=== PATIENT | male | born 1935 | race Caucasian/White ===

== ENCOUNTER 2016-05-17 18:11 | Inpatient (IN) | payer MEDICARE, OTHER ==
[~2016-05-17] VITALS: Ht 167.6 cm; Wt 67.9 kg
[2016-05-17 20:40] VITALS: BP 143/65; PULSE 82; RESP 18
[2016-05-17 22:01] VITALS: Ht 167.6 cm; Wt 67.9 kg
[2016-05-17] MEDS ORDERED: ACETAMINOPHEN 325 MG TAB PO PRN (23:30)
[2016-05-17] MEDS ORDERED: BISACODYL 10 MG SUPP PR PRN (23:30)
[2016-05-17] MEDS ORDERED: GLUCAGON 1 MG INJ IM PRN (23:30)
[2016-05-17] MEDS ORDERED: LACTULOSE 30ML CUP PO PRN (23:30)
[2016-05-17] MEDS ORDERED: ONDANSETRON 4 MG INJ IV PRN (23:30)
[2016-05-17] MEDS ORDERED: GLUCOSE GEL 15 GRAM TUBE PO PRN ×2 (23:30)
[2016-05-17] MEDS ORDERED: IPRATROPIUM (NEB) 0.5 MG/2.5 ML AMP INH PRN (23:30)
[2016-05-17] MEDS ORDERED: MAGNESIUM HYDROXIDE 30ML CUP PO PRN (23:30)
[2016-05-17] MEDS ORDERED: GLUCOSE GEL 15 GRAM TUBE BUCCAL PRN (23:30)
[2016-05-17] MEDS ORDERED: DEXTROSE 50% 50 ML SYRINGE IV PRN ×2 (23:30)
[2016-05-17] MEDS: TAMSULOSIN (SR) 0.4 MG CAP PO SCH (23:37)
[2016-05-17] MEDS: ATORVASTATIN 80 MG TAB PO SCH (23:37)
[2016-05-17] MEDS: INSULIN GLARGINE [LANtus] 3 ML PEN SC SCH (23:51)
[2016-05-18] MEDS: ACCUCHECK AT 2AM (Patients on SS coverage) XX SCH (02:00)
[2016-05-18 02:02] LABS: ADD UMIC YES; URINE BILIRUBIN (Dip) NEGATIVE (NEGATIVE); URINE BLOOD (Dip) TRACE (NEGATIVE); URINE COLOR LT. YELLOW (YELLOW); URINE GLUCOSE (Dip) NEGATIVE (NEGATIVE); URINE KETONES (Dip) NEGATIVE (NEGATIVE); URINE LEUKOCYTE ESTERASE (Dip) NEGATIVE (NEGATIVE); URINE NITRITE (Dip) NEGATIVE (NEGATIVE); URINE TOTAL PROTEIN (Dip) 2+ (NEGATIVE); URINE UROBILINOGEN (Dip) 0.2 E.U./dL (0.1-1.0)
[2016-05-18 02:29] LABS: SQUAMOUS EPITHELIAL CELL,UR FEW
[2016-05-18 06:47] LABS: BASOPHILS % 0.2 % (0.0-2.0); EOSINOPHILS # 0.3 10^3/ul (0.0-0.5); EOSINOPHILS % 3.6 % (0.0-7.0); HEMATOCRIT 31.3 % (42.0-52.0); HEMOGLOBIN 10.4 g/dl (14.0-18.0); LYMPHOCYTES % 11.9 % (15.0-51.0); MEAN CORPUSCULAR HEMOGLOBIN 30.3 pg (29.0-33.0); MEAN CORPUSCULAR HGB CONC 33.1 g/dl (32.0-37.0); MEAN CORPUSCULAR VOLUME 91.5 fl (82.0-101.0); MEAN PLATELET VOLUME 8.1 fl (7.4-10.4); MONOCYTE # 0.6 10^3/ul (0.3-0.9); MONOCYTES % 6.4 % (0.0-11.0); NEUTROPHIL # 6.8 10^3/ul (1.6-7.5); NEUTROPHILS % 77.9 % (39.0-77.0); PLATELET COUNT 308 10^3/UL (140-440); RED BLOOD COUNT 3.42 10^6/ul (4.70-6.10); UNCORRECTED WBC 8.7 10^3/ul (4.8-10.8); WHITE BLOOD COUNT 8.7 10^3/ul (4.8-10.8)
[2016-05-18 06:49] LABS: ALBUMIN 3.1 g/dl (3.3-4.9)
[2016-05-18 06:52] LABS: ALBUMIN/GLOBULIN RATIO 0.86; BILIRUBIN,INDIRECT 0.1 mg/dl (0-1.1); BILIRUBIN,TOTAL 0.1 mg/dl (0.2-1.3); CREATININE 1.37 mg/dl (0.61-1.24); TOTAL PROTEIN 6.7 g/dl (6.1-8.1)
[2016-05-18 06:53] LABS: CALCIUM 8.9 mg/dl (8.4-10.2)
[2016-05-18] MEDS: PANTOPRAZOLE (EC) 40 MG TAB PO SCH (06:55)
[2016-05-18 07:01] LABS: CONDITION 1
[2016-05-18] MEDS: Insulin NOVOLOG SS MILD Algorithm (SS with meals and bedtime) SC SCH ×4 (07:05→20:55)
[2016-05-18 08:14] VITALS: BP 134/60; PULSE 82; RESP 20
[2016-05-18] MEDS: CLOPIDOGREL 75 MG TAB PO SCH (09:11)
[2016-05-18] MEDS: DUTASTERIDE 0.5 MG CAP PO SCH (09:11)
[2016-05-18] MEDS: DOCUSATE SODIUM 100 MG CAP PO SCH ×2 (09:11→20:51)
[2016-05-18] MEDS: AMLODIPINE 10 MG TAB PO SCH (09:11)
[2016-05-18] MEDS: REPAGLINIDE 2 MG TAB PO SCH ×3 (09:11→17:34)
[2016-05-18] MEDS: ASPIRIN 81 MG TAB PO SCH (09:11)
--- NOTE | 2016-05-18 12:40 | CONS ---
DATE OF ADMISSION: 05/17/2016 DATE OF CONSULTATION: 05/18/2016 CHIEF COMPLAINT: Acute stroke. HISTORY OF PRESENT ILLNESS: This is a 80-year-old male with a past medical history of hypertension, history of chronic kidney disease stage IIIB, with a baseline creatinine around 1.5 to 1.7 mg/dL, h istory of diabetes, history of coronary artery disease, history of coronary artery bypass graft who presented to [facility] for evaluation of a sudden right-sided blindness. The patient i n the emergency room and had an initial CT scan of the brain which showed no acute evidence of cereb rovascular accident. The patient was diagnosed with amaurosis fugax and was admitted to [facility] for evaluation and possible carotid endarterectomy. The patient was seen by vascular escobar rgeon, Dr. Vu. An MRI of the brain was done which showed high-grade stenosis of the right pro ximal intracranial artery. 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 The patient was seen by neurologist, Dr. Kimbrough. The horacio ent was medically managed with aspirin, Plavix, and statin therapy. The patient was clinically stab ilized; however, he did suffer a significant premorbid decline, but as a result was transferred to [facility] acute rehab for continued care. Upon my evaluation of the patient at this time, he is currently stable. He continues to have left h and weakness, but denies any active pain, any fevers, chills, nausea, vomiting, shortness of breath. PAST MEDICAL HISTORY: As stated above, history of hypertension, history of coronary artery disease, history of coronary artery bypass graft, history of chronic kidney disease, history of dyslipidemia , history of BPH. PAST SURGICAL HISTORY: Status post right-sided carotid endarterectomy. FAMILY HISTORY: No family history of kidney disease or heart disease. SOCIAL HISTORY: Does not drink, smoke, or do drugs. MEDICATIONS: The patient's medications have been reviewed. REVIEW OF SYSTEMS: A 14-point review of systems was conducted. Pertinent positives as noted in HPI , otherwise negative. PHYSICAL EXAMINATION: VITAL SIGNS: Blood pressure 134/60, respirations 20, pulse 82, temperature 98.4. HEENT: Head is normocephalic. NECK: Supple. HEART: Regular rate. LUNGS: Show diminished breath sounds at the base. ABDOMEN: Soft, nontender to palpation, no rebound or guarding. EXTREMITIES: Negative for clubbing, cyanosis, no edema in the lower extremities. DERMATOLOGIC: No rashes. MUSCULOSKELETAL: No joint effusions. NEUROLOGIC: The patient has noted left upper extremity and left hand weakness. LABORATORY DATA: Shows white count 8.7, hemoglobin 10.4, hematocrit 31.3, platelet count 308. [place] um 144, potassium 4.0, chloride 106, BUN 29, creatinine 1.37. Urinalysis is reviewed and bland. ASSESSMENT AND PLAN: This is a 80-year-old male who presents with: 1. 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 The patient is currently stable. The plan is to continue current medical management wit h aspirin, Plavix, statin therapy. Continue current blood pressure regimen with the goal systolic p ressures less than 140. Continue physical therapy and PT. 2. Status post right carotid endarterectomy. The patient is currently stable. Continue current me dical management. Continue antiplatelet therapy stated above. 3. Diabetes. Continue Accu-Cheks and insulin sliding scale. 4. Hypertension. Continue current blood pressure regimen. 5. Chronic kidney disease stage III. The patient's baseline renal function around a creatinine of 1.5 mg/dL. Renal function is near baseline. Will continue supportive care, renally dose all medica tions, avoid nephrotoxins. 6. Diabetes. Continue Accu-Cheks, insulin sliding scale. 7. Benign prostatic hypertrophy. Continue Avodart and Flomax. 8. Gastrointestinal and deep venous thrombosis prophylaxis. Continue proton pump inhibitor and seq uential leg squeezers 9. History of coronary artery disease status post coronary artery bypass graft. Please note I spent up to 30 minutes of face to face time with the patient, discussing advance direc tives, code status. The patient is full code. Dictated By: RAYMOND BORREGO/DAMARI Conf#: [id number] DID#: [id number]
--- NOTE | 2016-05-18 12:50 | CONS ---
DATE OF ADMISSION: 05/17/2016 DATE OF CONSULTATION: 05/18/2016 REHABILITATION POST ADMISSION PHYSICIAN EVALUATION REHABILITATION IMPAIRMENT CATEGORY: Right MCA infarct with left-sided weakness. ACTIVE COMORBIDITIES: 1. Status post carotid endarterectomy. 2. Diabetes mellitus. 3. Hypertension. 4. Coronary artery disease with history of coronary artery bypass graft. 5. Chronic obstructive pulmonary disease. 6. Chronic kidney disease. 7. Dysphagia. 8. Impairments in self-care, mobility HISTORY OF PRESENT ILLNESS: The patient is a very pleasant 80-year-old right-handed gentleman with a history of coronary artery disease, hypertension and diabetes mellitus who underwent a right carot id endarterectomy for right ICA stenosis. Postoperatively, patient was noted to have significant le ft-sided weakness, most notable in the upper extremity. A head CT of the brain did demonstrate scat tered small strokes in the right MCA distribution and was negative for bleed. The patient also note d to have significant dysphagia. The patient has now been cleared to transfer to the rehabilitation unit for comprehensive interdisciplinary rehab care. FUNCTIONAL HISTORY: Prior to recent events, he was independent in self-care tasks and mobility. Cu rrently, the patient requires minimal to moderate to maximal assist for self-care activities and mod erate assist for mobility tasks. I have reviewed the preadmission screen and the patient's current functional status is consistent wi th the preadmission screen. SOCIAL HISTORY: The patient lives at home with family and hopes to return home upon discharge. PAST MEDICAL HISTORY: 1. Hypertension. 2. Coronary artery disease. 3. Diabetes mellitus. 4. Peripheral vascular disease. CURRENT MEDICATIONS: 1. Norvasc 10 mg p.o. daily. 2. Aspirin 81 mg p.o. daily. 3. Lipitor 80 mg p.o. at bedtime. 4. Plavix 75 mg p.o. daily. 5. Avodart 0.5 mg p.o. daily. 6. Insulin sliding scale. 7. Lantus 13 units subcu at bedtime. 8. Protonix 40 mg p.o. daily. 9. Catapres p.r.n. 10. Prandin 2 mg p.o. a.c. meals. 11. Flomax 0.4 mg p.o. daily. 12. [place] p.r.n. ALLERGIES: THE PATIENT WITH NO KNOWN DRUG ALLERGIES. PHYSICAL EXAMINATION: VITAL SIGNS: The patient is currently afebrile with stable vital signs. HEENT: The extraocular motions are intact. Oropharynx clear. NECK: With bandage in place, dry dressing. Surgical incision site clean, dry and intact. LUNGS: Clear anteriorly. CARDIAC: S1, S2. ABDOMEN: Soft, nontender, positive bowel sounds. NEUROLOGIC: He is awake, alert and oriented x3. He can follow simple 1-step commands. He demonstr ates good strength in the right upper and lower extremity. He has 3 to 3- strength in the left uppe r extremity. He has good antigravity strength in the left lower extremity. PLAN: The patient has been admitted for comprehensive interdisciplinary acute rehab and is anticipa terri to tolerate 3 hours of daily therapy in divided doses for at least 5/7 days a week. Treatment p tavia will include: 1. Physical therapy to focus on bed mobility, transfers, and household ambulation with the goal of having the patient reach standby assist level. 2. Occupational therapy to focus on hygiene, grooming, dressing, bathing, and toileting activities with the goal of having the patient reach standby assist level. 3. Speech therapy for full cognitive assessment in addition to dysphagia management with the goal o f having the patient return to baseline cognition and meet nutritional needs by mouth. 4. Rehabilitation nursing for carryover of therapeutic interventions, with the goal of continent of bowel and bladder, and the goal of skin integrity healed in addition to patient and family educatio n with regard to the aforementioned issues. REHABILITATION BARRIER: Dysphagia. INTERVENTION FOR BARRIER: Speech therapy. ESTIMATED LENGTH OF STAY: 14 days. DISPOSITION GOAL: Home. I acknowledge that I have performed a full physical examination on this patient within 24 hours of a dmission to the rehabilitation unit. I believe the patient is a good candidate for comprehensive in terdisciplinary rehab care and is anticipated to make reasonable goals in a reasonable period of jesse e as outlined above. Dictated By: FAHAD PEREZ/DAMARI Conf#: [id number] DID#: [id number]
[2016-05-18 20:00] VITALS: BP 150/70; PULSE 84; RESP 18
[2016-05-18] MEDS: TAMSULOSIN (SR) 0.4 MG CAP PO SCH (20:51)
[2016-05-18] MEDS: SENNA TAB PO SCH (20:52)
[2016-05-18] MEDS: ATORVASTATIN 80 MG TAB PO SCH (20:52)
[2016-05-18] MEDS: INSULIN GLARGINE [LANtus] 3 ML PEN SC SCH (20:53)
[2016-05-18] MEDS: HYDROCODONE/APAP (5/325) TAB PO PRN (23:25)
[2016-05-19] MEDS: ACCUCHECK AT 2AM (Patients on SS coverage) XX SCH (02:00)
[2016-05-19] MEDS: PANTOPRAZOLE (EC) 40 MG TAB PO SCH (06:53)
[2016-05-19 07:18] LABS: BASOPHILS % 0.3 % (0.0-2.0); EOSINOPHILS # 0.5 10^3/ul (0.0-0.5); EOSINOPHILS % 6.4 % (0.0-7.0); LYMPHOCYTES # 1.4 10^3/ul (0.8-2.9); LYMPHOCYTES % 18.4 % (15.0-51.0); MEAN CORPUSCULAR HEMOGLOBIN 30.1 pg (29.0-33.0); MEAN CORPUSCULAR HGB CONC 33.4 g/dl (32.0-37.0); MEAN CORPUSCULAR VOLUME 90.3 fl (82.0-101.0); MEAN PLATELET VOLUME 7.8 fl (7.4-10.4); MONOCYTE # 0.6 10^3/ul (0.3-0.9); MONOCYTES % 8.2 % (0.0-11.0); NEUTROPHIL # 4.9 10^3/ul (1.6-7.5); NEUTROPHILS % 66.7 % (39.0-77.0); PLATELET COUNT 305 10^3/UL (140-440); RED BLOOD COUNT 3.32 10^6/ul (4.70-6.10); RED CELL DISTRIBUTION WIDTH 13.3 % (11.5-14.5); UNCORRECTED WBC 7.4 10^3/ul (4.8-10.8); WHITE BLOOD COUNT 7.4 10^3/ul (4.8-10.8)
[2016-05-19 07:27] LABS: POTASSIUM 4.2 mmol/L (3.5-5.1)
[2016-05-19 07:28] LABS: CONDITION 1
[2016-05-19 07:29] LABS: CREATININE 1.42 mg/dl (0.61-1.24)
[2016-05-19 07:30] LABS: CALCIUM 8.6 mg/dl (8.4-10.2); MAGNESIUM 1.8 mg/dl (1.7-2.5); PHOSPHORUS 4.1 mg/dl (2.5-4.9)
[2016-05-19 08:00] VITALS: BP 162/67; PULSE 81; RESP 18
[2016-05-19] MEDS: REPAGLINIDE 2 MG TAB PO SCH ×3 (08:10→17:56)
[2016-05-19] MEDS: Insulin NOVOLOG SS MILD Algorithm (SS with meals and bedtime) SC SCH ×4 (08:17→21:36)
[2016-05-19] MEDS: ASPIRIN 81 MG TAB PO SCH (08:21)
[2016-05-19] MEDS: AMLODIPINE 10 MG TAB PO SCH (08:21)
[2016-05-19] MEDS: DOCUSATE SODIUM 100 MG CAP PO SCH ×2 (08:21→20:27)
[2016-05-19] MEDS: HYDROCODONE/APAP (5/325) TAB PO PRN (08:22)
[2016-05-19] MEDS: CLOPIDOGREL 75 MG TAB PO SCH (08:22)
[2016-05-19] MEDS: DUTASTERIDE 0.5 MG CAP PO SCH (08:22)
[2016-05-19 10:00] VITALS: BP 145/65; PULSE 78
--- NOTE | 2016-05-19 10:32 | PN ---
DATE: 05/19/2016 SUBJECTIVE: The patient is stable, no acute events overnight. No fevers, chills, nausea, vomiting, no shortness of breath. OBJECTIVE: VITAL SIGNS: Blood pressure is 162/67, respiration 18, pulse 81, temperature 98.3. HEENT: Head is normocephalic. HEART: Regular rate. LUNGS: Show diminished breath sounds at the base. ABDOMEN: Soft, nontender to palpation. No rebound or guarding. EXTREMITIES: Negative for clubbing, cyanosis. No edema. DERMATOLOGIC: No rashes. MUSCULOSKELETAL: No joint effusions. NEUROLOGIC: No change in exam. DERMATOLOGIC: No rashes. LABORATORY DATA: Showed sodium 141, potassium 4.2, chloride 106, BUN 28, creatinine 1.42. White co unt 7.4, hemoglobin 10.0, hematocrit 30.0, platelet count is 142. ASSESSMENT AND PLAN: 1. 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 The patient is currently stable. Continue medical management. Continue aspirin, Plavix , statin therapy. Continue current blood pressure regimen. We will adjust medications to maintain systolic pressures less than 140. 2. Status post right carotid endarterectomy. The patient is currently stable. Continue medical ma nagement. 3. Diabetes. Continue current insulin regimen. 4. Hypertension. Blood pressure remains elevated, will add a secondary agent, Coreg. Continue aml odipine. 5. Chronic kidney disease, stage III. Renal function stable, near or at baseline. Continue suppor tive care, renally dose all meds, avoid nephrotoxins. 6. Diabetes. Continue Accu-Cheks and sliding scale. 7. Benign prostatic hypertrophy. Continue Avodart and Flomax. 8. History of coronary artery disease, status post coronary artery bypass graft. 9. Gastrointestinal and deep vein thrombosis prophylaxis. Continue PPI and sequential leg squeezer s. Dictated By: RAYMOND BORREGO/DAMARI Conf#: [id number] DID#: [id number]
--- NOTE | 2016-05-19 11:39 | CONS ---
Date/Time of Note Date/Time of Note DATE: 05/19/16 TIME: 11:38 Consult Date/Type/Reason Admit Date/Time May 17, 2016 at 20:38 Initial Consult Date Subjective Progressing with rehab Objective min assist Vital Signs Date Time Temp Pulse Resp B/P Pulse Ox O2 Delivery O2 Flow Rate FiO2 05/19/16 08:00 98.3 81 18 162/67 97 Room Air 05/18/16 01:30 2.0 Intake and Output 05/18/16 05/18/16 05/19/16 14:59 22:59 06:59 Intake Total 480 ml 240 ml 380 ml Output Total 600 ml 200 ml Balance -120 ml 40 ml 380 ml Results/Medications Result Diagram: 05/19/16 0654 05/19/16 0654 Results 24 hrs Laboratory Tests Test 05/18/16 12:02 05/18/16 17:05 05/18/16 20:49 05/19/16 02:15 Bedside Glucose 271 H 194 278 H 295 H Test 05/19/16 06:54 05/19/16 07:44 Anion Gap 15 Basophils # 0.0 Basophils % 0.3 Blood Urea Nitrogen 28 H Calcium Level 8.6 Carbon Dioxide Level 24 Chloride Level 106 Creatinine 1.42 H Eosinophils # 0.5 Eosinophils % 6.4 Glucose Level 195 Hematocrit 30.0 L Hemoglobin 10.0 L Lymphocytes # 1.4 Lymphocytes % 18.4 Magnesium Level 1.8 Mean Corpuscular Hemoglobin 30.1 Mean Corpuscular Hemoglobin Concent 33.4 Mean Corpuscular Volume 90.3 Mean Platelet Volume 7.8 Monocytes # 0.6 Monocytes % 8.2 Neutrophils # 4.9 Neutrophils % 66.7 Nucleated Red Blood Cells # 0.0 Nucleated Red Blood Cells % 0.0 Phosphorus Level 4.1 Platelet Count 305 Potassium Level 4.2 Red Blood Count 3.32 L Red Cell Distribution Width 13.3 Sodium Level 141 White Blood Count 7.4 Bedside Glucose 194 Medications Current Medications Amlodipine Besylate (Norvasc) 10 mg DAILY PO Last administered on 05/19/16at 08 :21; Admin Dose 10 MG; Start 05/18/16 at 09:00 Aspirin (Aspirin) 81 mg DAILY PO Last administered on 05/19/16at 08:21; Admin Dose 81 MG; Start 05/18/16 at 09:00 Atorvastatin Calcium (Lipitor) 80 mg DAILY@21 PO Last administered on at 20:52; Admin Dose 80 MG; Start 05/17/16 at 23:00 Clopidogrel Bisulfate (plaVIX) 75 mg DAILY PO Last administered on 05/19/16at 08:22; Admin Dose 75 MG; Start 05/18/16 at 09:00 Dutasteride (Avodart) 0.5 mg DAILY PO Last administered on 05/19/16at 08:22; Admin Dose 0.5 MG; Start 05/18/16 at 09:00 Insulin Glargine (Lantus) 13 unit HS SC Last administered on 05/18/16at 20:53; Admin Dose 13 UNIT; Start 05/17/16 at 23:00 Pantoprazole (Protonix Tab) 40 mg DAILY@06 PO Last administered on 05/19/16at 06:53; Admin Dose 40 MG; Start 05/18/16 at 06:00 Acetaminophen (Tylenol Tab) 650 mg Q4H PRN PO MILD PAIN OR FEVER; Start at 23:30 Clonidine (Catapres) 0.1 mg Q4H PRN PO ELEVATED BLOOD PRESSURE Last administered on 05/18/16at 23:22; Admin Dose 0.1 MG; Start 05/17/16 at 23:30 Ondansetron HCl (Zofran Inj) 4 mg Q6H PRN IV NAUSEA AND/OR VOMITING; Start at 23:30 Tamsulosin HCl (Flomax) 0.4 mg DAILY@21 PO Last administered on 05/18/16at 20: 51; Admin Dose 0.4 MG; Start 05/17/16 at 23:00 Diagnostic Test (Pha) (Accucheck) 1 ea 02 XX Last administered on 05/19/16at 02 :00; Admin Dose 1 EA; Start 05/18/16 at 02:00 Miscellaneous Information 1 ea NOTE XX ; Start 05/17/16 at 23:30 Glucose (Glutose) 15 gm Q15M PRN PO DECREASED GLUCOSE; Start 05/17/16 at 23:30 Glucose (Glutose) 22.5 gm Q15M PRN PO DECREASED GLUCOSE; Start 05/17/16 at 23: 30 Dextrose (D50w Syringe) 25 ml Q15M PRN IV DECREASED GLUCOSE; Start 05/17/16 at 23:30 Dextrose (D50w Syringe) 50 ml Q15M PRN IV DECREASED GLUCOSE; Start 05/17/16 at 23:30 Glucagon (Glucagen) 1 mg Q15M PRN IM DECREASED GLUCOSE; Start 05/17/16 at 23: 30 Glucose (Glutose) 15 gm Q15M PRN BUCCAL DECREASED GLUCOSE; Start 05/17/16 at 23:30 Acetaminophen/ Hydrocodone Bitart ([place] (5/325)) 1 tab Q6H PRN PO PAIN Last administered on 05/19/16at 08:22; Admin Dose 1 TAB; Start 05/17/16 at 23:30 Docusate Sodium (Colace) 100 mg BID PO Last administered on 05/19/16at 08:21; Admin Dose 100 MG; Start 05/18/16 at 09:00 Senna (Senokot) 1 tab HS PO Last administered on 05/18/16at 20:52; Admin Dose 1 TAB; Start 05/18/16 at 21:00 Bisacodyl (Dulcolax Supp) 10 mg DAILY PRN [place] CONSTIPATION; Start 05/17/16 at 23:30 Magnesium Hydroxide (Milk Of Mag) 30 ml BID PRN PO CONSTIPATION; Start at 23:30 Lactulose (Enulose) 20 gm DAILY PRN PO CONSTIPATION Last administered on at 23:37; Admin Dose 20 GM; Start 05/17/16 at 23:30 Carvedilol (Coreg) 3.125 mg BID PO ; Start 05/19/16 at 10:00 Assessment/Plan Additional Assessment/Plan Rehab- Right MCA infarct with left-sided weakness. Continue rehab program Status post carotid endarterectomy. Diabetes mellitus. Hypertension. Coronary artery disease with history of coronary artery bypass graft. Chronic obstructive pulmonary disease. Chronic kidney disease. Dysphagia. FAHAD MELTON MD May 19, 2016 11:39
[2016-05-19] MEDS: TAMSULOSIN (SR) 0.4 MG CAP PO SCH (20:27)
[2016-05-19] MEDS: ATORVASTATIN 80 MG TAB PO SCH (20:27)
[2016-05-19] MEDS: SENNA TAB PO SCH (20:27)
[2016-05-19 20:39] VITALS: BP 161/69; PULSE 87; RESP 19
[2016-05-19] MEDS: INSULIN GLARGINE [LANtus] 3 ML PEN SC SCH (21:35)
[2016-05-20] MEDS: ACCUCHECK AT 2AM (Patients on SS coverage) XX SCH (02:47)
[2016-05-20] MEDS: PANTOPRAZOLE (EC) 40 MG TAB PO SCH (06:40)
[2016-05-20 08:00] VITALS: BP 197/83; RESP 18
[2016-05-20] MEDS: ASPIRIN 81 MG TAB PO SCH (08:25)
[2016-05-20] MEDS: AMLODIPINE 10 MG TAB PO SCH (08:25)
[2016-05-20 08:26] VITALS: BP 155/65; RESP 18
[2016-05-20] MEDS: DOCUSATE SODIUM 100 MG CAP PO SCH ×2 (08:26→20:25)
[2016-05-20] MEDS: DUTASTERIDE 0.5 MG CAP PO SCH (08:26)
[2016-05-20] MEDS: HYDROCODONE/APAP (5/325) TAB PO PRN (08:26)
[2016-05-20] MEDS: CLOPIDOGREL 75 MG TAB PO SCH (08:26)
[2016-05-20] MEDS: REPAGLINIDE 2 MG TAB PO SCH ×3 (08:33→17:19)
[2016-05-20] MEDS: Insulin NOVOLOG SS MILD Algorithm (SS with meals and bedtime) SC SCH ×4 (08:33→20:33)
--- NOTE | 2016-05-20 11:56 | CONS ---
Date/Time of Note Date/Time of Note DATE: 05/20/16 TIME: 11:55 Consult Date/Type/Reason Admit Date/Time May 17, 2016 at 20:38 Subjective No New complaints Objective cga ambulation Vital Signs Date Time Temp Pulse Resp B/P Pulse Ox O2 Delivery O2 Flow Rate FiO2 05/20/16 08:26 18 155/65 98 Room Air 05/20/16 08:00 98.3 05/19/16 20:39 87 05/18/16 01:30 2.0 Intake and Output 05/19/16 05/19/16 05/20/16 14:59 22:59 06:59 Intake Total 360 ml Balance 360 ml Results/Medications Result Diagram: 05/19/16 0654 05/19/16 0654 Results 24 hrs Laboratory Tests Test 05/19/16 12:09 05/19/16 17:38 05/19/16 21:27 05/20/16 02:26 Bedside Glucose 270 H 325 H 330 H 144 Test 05/20/16 07:43 Bedside Glucose 153 Medications Current Medications Amlodipine Besylate (Norvasc) 10 mg DAILY PO Last administered on 05/20/16at 08 :25; Admin Dose 10 MG; Start 05/18/16 at 09:00 Aspirin (Aspirin) 81 mg DAILY PO Last administered on 05/20/16at 08:25; Admin Dose 81 MG; Start 05/18/16 at 09:00 Atorvastatin Calcium (Lipitor) 80 mg DAILY@21 PO Last administered on at 20:27; Admin Dose 80 MG; Start 05/17/16 at 23:00 Clopidogrel Bisulfate (plaVIX) 75 mg DAILY PO Last administered on 05/20/16at 08:26; Admin Dose 75 MG; Start 05/18/16 at 09:00 Dutasteride (Avodart) 0.5 mg DAILY PO Last administered on 05/20/16at 08:26; Admin Dose 0.5 MG; Start 05/18/16 at 09:00 Insulin Glargine (Lantus) 13 unit HS SC Last administered on 05/19/16at 21:35; Admin Dose 13 UNIT; Start 05/17/16 at 23:00 Pantoprazole (Protonix Tab) 40 mg DAILY@06 PO Last administered on 05/20/16at 06:40; Admin Dose 40 MG; Start 05/18/16 at 06:00 Acetaminophen (Tylenol Tab) 650 mg Q4H PRN PO MILD PAIN OR FEVER; Start at 23:30 Clonidine (Catapres) 0.1 mg Q4H PRN PO ELEVATED BLOOD PRESSURE Last administered on 05/19/16at 20:28; Admin Dose 0.1 MG; Start 05/17/16 at 23:30 Ondansetron HCl (Zofran Inj) 4 mg Q6H PRN IV NAUSEA AND/OR VOMITING; Start at 23:30 Tamsulosin HCl (Flomax) 0.4 mg DAILY@21 PO Last administered on 05/19/16at 20: 27; Admin Dose 0.4 MG; Start 05/17/16 at 23:00 Diagnostic Test (Pha) (Accucheck) 1 ea 02 XX Last administered on 05/20/16at 02 :47; Admin Dose 1 EA; Start 05/18/16 at 02:00 Miscellaneous Information 1 ea NOTE XX ; Start 05/17/16 at 23:30 Glucose (Glutose) 15 gm Q15M PRN PO DECREASED GLUCOSE; Start 05/17/16 at 23:30 Glucose (Glutose) 22.5 gm Q15M PRN PO DECREASED GLUCOSE; Start 05/17/16 at 23: 30 Dextrose (D50w Syringe) 25 ml Q15M PRN IV DECREASED GLUCOSE; Start 05/17/16 at 23:30 Dextrose (D50w Syringe) 50 ml Q15M PRN IV DECREASED GLUCOSE; Start 05/17/16 at 23:30 Glucagon (Glucagen) 1 mg Q15M PRN IM DECREASED GLUCOSE; Start 05/17/16 at 23: 30 Glucose (Glutose) 15 gm Q15M PRN BUCCAL DECREASED GLUCOSE; Start 05/17/16 at 23:30 Acetaminophen/ Hydrocodone Bitart ([place] (5/325)) 1 tab Q6H PRN PO PAIN Last administered on 05/20/16at 08:26; Admin Dose 1 TAB; Start 05/17/16 at 23:30 Docusate Sodium (Colace) 100 mg BID PO Last administered on 05/20/16at 08:26; Admin Dose 100 MG; Start 05/18/16 at 09:00 Senna (Senokot) 1 tab HS PO Last administered on 05/19/16at 20:27; Admin Dose 1 TAB; Start 05/18/16 at 21:00 Bisacodyl (Dulcolax Supp) 10 mg DAILY PRN [place] CONSTIPATION; Start 05/17/16 at 23:30 Magnesium Hydroxide (Milk Of Mag) 30 ml BID PRN PO CONSTIPATION; Start at 23:30 Lactulose (Enulose) 20 gm DAILY PRN PO CONSTIPATION Last administered on at 23:37; Admin Dose 20 GM; Start 05/17/16 at 23:30 Carvedilol (Coreg) 3.125 mg BID PO Last administered on 05/20/16at 08:26; Admin Dose 3.125 MG; Start 05/19/16 at 10:00 Assessment/Plan Additional Assessment/Plan Rehab- Right MCA infarct with left-sided weakness. Steady progress, continue treatment plan Status post carotid endarterectomy. Diabetes mellitus. Hypertension. Coronary artery disease with history of coronary artery bypass graft. Chronic obstructive pulmonary disease. Chronic kidney disease. Dysphagia. FAHAD MELTON MD May 20, 2016 11:56
--- NOTE | 2016-05-20 16:49 | PN ---
DATE: 05/20/2016 SUBJECTIVE: Patient is stable, no acute events overnight. No fevers, chills, nausea or vomiting. OBJECTIVE: VITAL SIGNS: Blood pressure 155/65, respiration 18, pulse 81, temperature 98.3. HEENT: Head is normocephalic. NECK: Supple. HEART: Regular rate. LUNGS: Show diminished breath sounds at the base. ABDOMEN: Soft, nontender to palpation. No rebound or guarding. EXTREMITIES: Negative for clubbing or cyanosis. No edema. DERMATOLOGIC: No rashes. MUSCULOSKELETAL: Have no joint effusion. NEUROLOGIC: No change in exam. MEDICATIONS: The patient's medications have been reviewed. LABORATORY DATA: Has been reviewed. No new labs. ASSESSMENT AND PLAN: 1. Acute right-sided cerebrovascular accident of the middle cerebral artery distribution, with left upper extremity weakness. The patient is currently stable. Continue medical management. Continue aspirin, Plavix and statin therapy. 2. Status post right carotid endarterectomy. The patient is currently stable. Continue medical ma nagement. 3. Diabetes. Continue the current insulin regimen. 4. Hypertension. Blood pressure is elevated. Will adjust medications, increase Coreg to 12.5 b.i. d. Continue amlodipine. 5. Chronic kidney disease stage III. Renal function is stable. Continue the current treatment timothy n. Renally dose all meds, avoid nephrotoxins. 6. Benign prostatic hypertrophy. Continue Avodart and Flomax. 7. History of coronary artery disease. Status post coronary artery bypass graft. 8. Gastrointestinal and deep vein thrombosis prophylaxis. Continue proton pump inhibitor and sequen tial leg squeezers. Dictated By: RAYMOND BORREGO/DAMARI Conf#: [id number] DID#: [id number]
[2016-05-20 20:00] VITALS: BP 180/76; PULSE 80; RESP 20
[2016-05-20] MEDS: SENNA TAB PO SCH (20:25)
[2016-05-20] MEDS: TAMSULOSIN (SR) 0.4 MG CAP PO SCH (20:25)
[2016-05-20] MEDS: ATORVASTATIN 80 MG TAB PO SCH (20:25)
[2016-05-20] MEDS: NIFEdipine (XL) 60 MG TAB PO SCH (20:26)
[2016-05-20] MEDS: INSULIN GLARGINE [LANtus] 3 ML PEN SC SCH (20:32)
[2016-05-21 02:16] VITALS: BP 134/61; PULSE 68
[2016-05-21] MEDS: ACCUCHECK AT 2AM (Patients on SS coverage) XX SCH (02:16)
[2016-05-21] MEDS: PANTOPRAZOLE (EC) 40 MG TAB PO SCH (06:18)
[2016-05-21] MEDS: Insulin NOVOLOG SS MILD Algorithm (SS with meals and bedtime) SC SCH ×4 (07:05→20:37)
[2016-05-21 07:55] VITALS: BP 113/56; RESP 18
[2016-05-21] MEDS: CLOPIDOGREL 75 MG TAB PO SCH (08:08)
[2016-05-21] MEDS: ASPIRIN 81 MG TAB PO SCH (08:08)
[2016-05-21] MEDS: DOCUSATE SODIUM 100 MG CAP PO SCH ×2 (08:08→21:00)
[2016-05-21] MEDS: NIFEdipine (XL) 60 MG TAB PO SCH ×2 (08:08→20:33)
[2016-05-21] MEDS: REPAGLINIDE 2 MG TAB PO SCH ×3 (08:08→17:21)
[2016-05-21] MEDS: DUTASTERIDE 0.5 MG CAP PO SCH (08:08)
[2016-05-21 10:57] LABS: BASOPHILS % 0.2 % (0.0-2.0); EOSINOPHILS # 0.7 10^3/ul (0.0-0.5); EOSINOPHILS % 5.6 % (0.0-7.0); HEMOGLOBIN 11.4 g/dl (14.0-18.0); LYMPHOCYTES # 1.3 10^3/ul (0.8-2.9); LYMPHOCYTES % 10.9 % (15.0-51.0); MEAN CORPUSCULAR HEMOGLOBIN 29.8 pg (29.0-33.0); MEAN CORPUSCULAR HGB CONC 33.3 g/dl (32.0-37.0); MEAN CORPUSCULAR VOLUME 89.5 fl (82.0-101.0); MEAN PLATELET VOLUME 7.8 fl (7.4-10.4); MONOCYTE # 0.8 10^3/ul (0.3-0.9); MONOCYTES % 6.5 % (0.0-11.0); NEUTROPHIL # 9.5 10^3/ul (1.6-7.5); NEUTROPHILS % 76.8 % (39.0-77.0); PLATELET COUNT 385 10^3/UL (140-440); RED CELL DISTRIBUTION WIDTH 13.3 % (11.5-14.5); UNCORRECTED WBC 12.3 10^3/ul (4.8-10.8); WHITE BLOOD COUNT 12.3 10^3/ul (4.8-10.8)
[2016-05-21 11:05] LABS: CONDITION 1
[2016-05-21 11:20] LABS: POTASSIUM 4.9 mmol/L (3.5-5.1)
[2016-05-21 11:23] LABS: CREATININE 1.38 mg/dl (0.61-1.24)
[2016-05-21 11:24] LABS: CALCIUM 8.9 mg/dl (8.4-10.2); MAGNESIUM 1.7 mg/dl (1.7-2.5); PHOSPHORUS 4.3 mg/dl (2.5-4.9)
--- NOTE | 2016-05-21 18:10 | PN ---
DATE: 05/21/2016 DATE OF SERVICE: 05/21/2016 SUBJECTIVE: The patient is stable, no acute events overnight. No fevers, chills, nausea, vomiting. OBJECTIVE: VITAL SIGNS: Blood pressure 113/56, respiration 18, pulse 75, temperature 98.4. HEENT: Head is normocephalic. NECK: Supple. HEART: Regular rate. LUNGS: Show diminished breath sounds at the base. ABDOMEN: Soft, nontender to palpation. No rebound or guarding. EXTREMITIES: Negative for clubbing, cyanosis. No edema. DERMATOLOGIC: No rashes. MUSCULOSKELETAL: No joint effusions. NEUROLOGIC: No change in exam. MEDICATIONS: Reviewed. LABORATORY DATA: Showed sodium 136, potassium 4.9, BUN 32, creatinine 1.38. White count 12.3, hemo globin 11.4, hematocrit 34.0, platelet count is 385. The patient's urine culture grew out negative Staph. Patient's initial urinalysis showed 0 to 2 WBCs. ASSESSMENT AND PLAN: 1. Acute right-sided cerebrovascular accident with middle cerebral artery distribution with upper e xtremity weakness. The patient is currently stable. Continue medical management. 2. Status post right carotid endarterectomy. Continue current medical management. 3. Hypertension. Blood pressure improved. Continue current blood pressure regimen. 4. Diabetes, continue Accu-Cheks and sliding scale. 5. Leukocytosis. Etiology may be reactive. The patient's urine culture does show positive coagula se negative staph, but patient's urinalysis shows no pyuria. Will monitor closely. Repeat a CBC. Low suspicion for infection at this time. 6. Chronic kidney disease, stage III. Renal function is stable. Continue to monitor. Continue cu rrent medical management. 7. Benign prostatic hypertrophy. Continue Flomax. 8. History of coronary artery disease, status post bypass. 9. Gastrointestinal and deep venous thrombosis prophylaxis. Continue proton pump inhibitor and seq uential leg squeezers. Dictated By: RAYMOND BORREGO/DAMARI Conf#: [id number] DID#: [id number]
[2016-05-21 20:19] VITALS: BP 135/60; RESP 22
[2016-05-21] MEDS: TAMSULOSIN (SR) 0.4 MG CAP PO SCH (20:30)
[2016-05-21] MEDS: ATORVASTATIN 80 MG TAB PO SCH (20:30)
[2016-05-21] MEDS: INSULIN GLARGINE [LANtus] 3 ML PEN SC SCH (20:36)
[2016-05-21] MEDS: SENNA TAB PO SCH (21:00)
[2016-05-21 22:29] VITALS: BP 124/58
[2016-05-22] MEDS: ACCUCHECK AT 2AM (Patients on SS coverage) XX SCH (02:00)
[2016-05-22] MEDS: PANTOPRAZOLE (EC) 40 MG TAB PO SCH (05:32)
[2016-05-22] MEDS: Insulin NOVOLOG SS MILD Algorithm (SS with meals and bedtime) SC SCH ×4 (07:05→20:49)
[2016-05-22 07:25] LABS: BASOPHILS % 0.3 % (0.0-2.0); EOSINOPHILS # 0.7 10^3/ul (0.0-0.5); EOSINOPHILS % 7.2 % (0.0-7.0); HEMOGLOBIN 11.1 g/dl (14.0-18.0); LYMPHOCYTES # 1.3 10^3/ul (0.8-2.9); LYMPHOCYTES % 13.8 % (15.0-51.0); MEAN CORPUSCULAR HEMOGLOBIN 30.1 pg (29.0-33.0); MEAN CORPUSCULAR HGB CONC 33.6 g/dl (32.0-37.0); MEAN CORPUSCULAR VOLUME 89.6 fl (82.0-101.0); MEAN PLATELET VOLUME 7.6 fl (7.4-10.4); MONOCYTE # 0.7 10^3/ul (0.3-0.9); MONOCYTES % 7.1 % (0.0-11.0); NEUTROPHIL # 6.9 10^3/ul (1.6-7.5); NEUTROPHILS % 71.6 % (39.0-77.0); PLATELET COUNT 353 10^3/UL (140-440); RED BLOOD COUNT 3.68 10^6/ul (4.70-6.10); RED CELL DISTRIBUTION WIDTH 13.3 % (11.5-14.5); UNCORRECTED WBC 9.7 10^3/ul (4.8-10.8); WHITE BLOOD COUNT 9.7 10^3/ul (4.8-10.8)
[2016-05-22 07:27] LABS: CONDITION 1
[2016-05-22 07:40] VITALS: BP 134/64; RESP 18
[2016-05-22] MEDS: NIFEdipine (XL) 60 MG TAB PO SCH ×2 (08:56→20:25)
[2016-05-22] MEDS: DUTASTERIDE 0.5 MG CAP PO SCH (08:56)
[2016-05-22] MEDS: REPAGLINIDE 2 MG TAB PO SCH ×2 (08:56→12:46)
[2016-05-22] MEDS: CLOPIDOGREL 75 MG TAB PO SCH (08:57)
[2016-05-22] MEDS: ASPIRIN 81 MG TAB PO SCH (08:57)
[2016-05-22] MEDS: HYDROCODONE/APAP (5/325) TAB PO PRN (08:57)
[2016-05-22] MEDS: DOCUSATE SODIUM 100 MG CAP PO SCH ×2 (08:58→20:25)
--- NOTE | 2016-05-22 10:22 | PN ---
DATE: 05/22/2016 SUBJECTIVE: The patient is stable, no acute events overnight. No fevers, chills, nausea or vomitin g. No shortness of breath. OBJECTIVE: VITAL SIGNS: Blood pressure is 134/64, respiration 18, pulse and temperature 98.5. HEENT: Head is normocephalic. NECK: Supple. HEART: Regular rate. LUNGS: Show diminished breath sounds at base. ABDOMEN: Soft, nontender to palpation. No rebound or guarding. EXTREMITIES: Negative for clubbing, cyanosis and no edema. DERMATOLOGIC: No rashes. MUSCULOSKELETAL: No joint effusions. NEUROLOGIC: No change in exam. MEDICATIONS: Reviewed. LABORATORY DATA: Shows white count 9.7, hemoglobin 11.1, hematocrit 33.0 and platelet count is 353. ASSESSMENT AND PLAN: 1. 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 With left upper extre mity weakness. The patient is currently stable. Continue medical management. 2. Status post right carotid endarterectomy. Continue to monitor. 3. Hypertension. Continue current blood pressure regimen. 4. Diabetes. Continue Accu-Cheks and sliding scale. 5. Leukocytosis, improved, likely reactive. Continue to monitor. 6. Asymptomatic pyuria. Continue to monitor. No signs of infection. 7. Chronic kidney disease stage III. Renal function stable. Continue supportive care, renally dos e the meds and avoid nephrotoxins. 8. Benign prostatic hypertrophy. Continue Flomax. 9. History of coronary artery disease, status post coronary artery bypass graft. 10. Gastrointestinal and deep venous thrombosis prophylaxis. Continue proton pump inhibitor and se quential leg squeezers. Dictated By: RAYMOND BORREGO/DAMARI Conf#: [id number] DID#: [id number]
--- NOTE | 2016-05-22 11:34 | CONS ---
Date/Time of Note Date/Time of Note DATE: 05/22/16 TIME: 11:33 Consult Date/Type/Reason Admit Date/Time May 17, 2016 at 20:38 Subjective comfortable Objective cga ambulation Vital Signs Date Time Temp Pulse Resp B/P Pulse Ox O2 Delivery O2 Flow Rate FiO2 05/22/16 07:40 98.5 18 18 134/64 98 05/20/16 20:00 Room Air Intake and Output 05/21/16 05/21/16 05/22/16 14:59 22:59 06:59 Intake Total 480 ml 840 ml 660 ml Output Total 200 ml 400 ml Balance 280 ml 840 ml 260 ml Results/Medications Result Diagram: 05/22/16 0615 05/21/16 0950 Results 24 hrs Laboratory Tests Test 05/21/16 11:46 05/21/16 17:06 05/21/16 20:14 05/22/16 02:09 Bedside Glucose 324 H 223 H 259 H 109 Test 05/22/16 06:15 05/22/16 07:27 Basophils # 0.0 Basophils % 0.3 Eosinophils # 0.7 H Eosinophils % 7.2 H Hematocrit 33.0 L Hemoglobin 11.1 L Lymphocytes # 1.3 Lymphocytes % 13.8 L Mean Corpuscular Hemoglobin 30.1 Mean Corpuscular Hemoglobin Concent 33.6 Mean Corpuscular Volume 89.6 Mean Platelet Volume 7.6 Monocytes # 0.7 Monocytes % 7.1 Neutrophils # 6.9 Neutrophils % 71.6 Nucleated Red Blood Cells # 0.0 Nucleated Red Blood Cells % 0.0 Platelet Count 353 Red Blood Count 3.68 L Red Cell Distribution Width 13.3 White Blood Count 9.7 # Bedside Glucose 97 Medications Current Medications Aspirin (Aspirin) 81 mg DAILY PO Last administered on 05/22/16 08:57; Admin Dose 81 MG; Start 05/18/16 at 09:00 Atorvastatin Calcium (Lipitor) 80 mg DAILY@21 PO Last administered on 05/21/16 20:30; Admin Dose 80 MG; Start 05/17/16 at 23:00 Clopidogrel Bisulfate (plaVIX) 75 mg DAILY PO Last administered on 05/22/16 08: 57; Admin Dose 75 MG; Start 05/18/16 at 09:00 Dutasteride (Avodart) 0.5 mg DAILY PO Last administered on 05/22/16 08:56; Admin Dose 0.5 MG; Start 05/18/16 at 09:00 Insulin Glargine (Lantus) 13 unit HS SC Last administered on 05/21/16 20:36; Admin Dose 13 UNIT; Start 05/17/16 at 23:00 Pantoprazole (Protonix Tab) 40 mg DAILY@06 PO Last administered on 05/22/16 05: 32; Admin Dose 40 MG; Start 05/18/16 at 06:00 Acetaminophen (Tylenol Tab) 650 mg Q4H PRN PO MILD PAIN OR FEVER; Start at 23:30 Clonidine (Catapres) 0.1 mg Q4H PRN PO ELEVATED BLOOD PRESSURE Last administered on 05/19/16at 20:28; Admin Dose 0.1 MG; Start 05/17/16 at 23:30 Ondansetron HCl (Zofran Inj) 4 mg Q6H PRN IV NAUSEA AND/OR VOMITING; Start at 23:30 Tamsulosin HCl (Flomax) 0.4 mg DAILY@21 PO Last administered on 05/21/16 20:30 ; Admin Dose 0.4 MG; Start 05/17/16 at 23:00 Diagnostic Test (Pha) (Accucheck) 1 ea 02 XX Last administered on 05/21/16 02: 16; Admin Dose 1 EA; Start 05/18/16 at 02:00 Miscellaneous Information 1 ea NOTE XX ; Start 05/17/16 at 23:30 Glucose (Glutose) 15 gm Q15M PRN PO DECREASED GLUCOSE; Start 05/17/16 at 23:30 Glucose (Glutose) 22.5 gm Q15M PRN PO DECREASED GLUCOSE; Start 05/17/16 at 23: 30 Dextrose (D50w Syringe) 25 ml Q15M PRN IV DECREASED GLUCOSE; Start 05/17/16 at 23:30 Dextrose (D50w Syringe) 50 ml Q15M PRN IV DECREASED GLUCOSE; Start 05/17/16 at 23:30 Glucagon (Glucagen) 1 mg Q15M PRN IM DECREASED GLUCOSE; Start 05/17/16 at 23: 30 Glucose (Glutose) 15 gm Q15M PRN BUCCAL DECREASED GLUCOSE; Start 05/17/16 at 23:30 Acetaminophen/ Hydrocodone Bitart ([place] (5/325)) 1 tab Q6H PRN PO PAIN Last administered on 05/22/16 08:57; Admin Dose 1 TAB; Start 05/17/16 at 23:30 Docusate Sodium (Colace) 100 mg BID PO Last administered on 05/22/16 08:58; Admin Dose 100 MG; Start 05/18/16 at 09:00 Senna (Senokot) 1 tab HS PO Last administered on 05/20/16at 20:25; Admin Dose 1 TAB; Start 05/18/16 at 21:00 Bisacodyl (Dulcolax Supp) 10 mg DAILY PRN [place] CONSTIPATION; Start 05/17/16 at 23:30 Magnesium Hydroxide (Milk Of Mag) 30 ml BID PRN PO CONSTIPATION; Start at 23:30 Lactulose (Enulose) 20 gm DAILY PRN PO CONSTIPATION Last administered on at 23:37; Admin Dose 20 GM; Start 05/17/16 at 23:30 Carvedilol (Coreg) 12.5 mg BID PO Last administered on 05/22/16 08:57; Admin Dose 12.5 MG; Start 05/20/16 at 21:00 Nifedipine (Procardia Xl) 60 mg BID PO Last administered on 05/22/16 08:56; Admin Dose 60 MG; Start 05/20/16 at 21:00 Assessment/Plan Additional Assessment/Plan Rehab- Right MCA infarct with left-sided weakness. Excellent progress, continue rehab program Status post carotid endarterectomy. Diabetes mellitus. Hypertension. Coronary artery disease with history of coronary artery bypass graft. Chronic obstructive pulmonary disease. Chronic kidney disease. Dysphagia. FAHAD MELTON MD May 22, 2016 11:34
[2016-05-22] MEDS: REPAGLINIDE 1 MG TAB PO SCH (18:32)
[2016-05-22 20:21] VITALS: BP 141/61; RESP 17
[2016-05-22 20:24] VITALS: BP 119/58; PULSE 83
[2016-05-22] MEDS: TAMSULOSIN (SR) 0.4 MG CAP PO SCH (20:24)
[2016-05-22] MEDS: SENNA TAB PO SCH (20:24)
[2016-05-22] MEDS: ATORVASTATIN 80 MG TAB PO SCH (20:25)
[2016-05-22] MEDS: INSULIN GLARGINE [LANtus] 3 ML PEN SC SCH (20:48)
[2016-05-23] MEDS: ACCUCHECK AT 2AM (Patients on SS coverage) XX SCH (02:00)
[2016-05-23 02:42] VITALS: BP 114/50; PULSE 83
[2016-05-23] MEDS: PANTOPRAZOLE (EC) 40 MG TAB PO SCH (06:15)
[2016-05-23] MEDS ORDERED: REPAGLINIDE 1 MG TAB PO SCH (07:05)
[2016-05-23 07:30] VITALS: BP 113/54; RESP 18
[2016-05-23] MEDS: ASPIRIN 81 MG TAB PO SCH (08:05)
[2016-05-23] MEDS: REPAGLINIDE 1 MG TAB PO SCH ×3 (08:06→17:22)
[2016-05-23] MEDS: DOCUSATE SODIUM 100 MG CAP PO SCH ×2 (08:06→22:00)
[2016-05-23] MEDS: CLOPIDOGREL 75 MG TAB PO SCH (08:06)
[2016-05-23] MEDS: HYDROCODONE/APAP (5/325) TAB PO PRN (08:07)
[2016-05-23] MEDS: Insulin NOVOLOG SS MILD Algorithm (SS with meals and bedtime) SC SCH ×4 (08:12→22:21)
[2016-05-23] MEDS: NIFEdipine (XL) 60 MG TAB PO SCH (09:00)
[2016-05-23] MEDS: DUTASTERIDE 0.5 MG CAP PO SCH (09:41)
[2016-05-23 10:51] LABS: BASOPHILS % 0.2 % (0.0-2.0); EOSINOPHILS # 0.5 10^3/ul (0.0-0.5); EOSINOPHILS % 5.5 % (0.0-7.0); HEMATOCRIT 31.4 % (42.0-52.0); HEMOGLOBIN 10.4 g/dl (14.0-18.0); LYMPHOCYTES # 1.2 10^3/ul (0.8-2.9); LYMPHOCYTES % 12.4 % (15.0-51.0); MEAN CORPUSCULAR HEMOGLOBIN 29.8 pg (29.0-33.0); MEAN CORPUSCULAR HGB CONC 33.3 g/dl (32.0-37.0); MEAN CORPUSCULAR VOLUME 89.6 fl (82.0-101.0); MEAN PLATELET VOLUME 7.3 fl (7.4-10.4); MONOCYTE # 0.6 10^3/ul (0.3-0.9); MONOCYTES % 6.2 % (0.0-11.0); NEUTROPHIL # 7.4 10^3/ul (1.6-7.5); NEUTROPHILS % 75.7 % (39.0-77.0); PLATELET COUNT 340 10^3/UL (140-440); RED BLOOD COUNT 3.51 10^6/ul (4.70-6.10); RED CELL DISTRIBUTION WIDTH 13.3 % (11.5-14.5); UNCORRECTED WBC 9.8 10^3/ul (4.8-10.8); WHITE BLOOD COUNT 9.8 10^3/ul (4.8-10.8)
[2016-05-23 10:57] LABS: CONDITION 1
[2016-05-23 11:01] LABS: POTASSIUM 4.9 mmol/L (3.5-5.1)
[2016-05-23 11:03] LABS: CREATININE 1.68 mg/dl (0.61-1.24)
[2016-05-23 11:04] LABS: CALCIUM 8.6 mg/dl (8.4-10.2)
--- NOTE | 2016-05-23 11:12 | CONS ---
Date/Time of Note Date/Time of Note DATE: 05/23/16 TIME: 11:12 Consult Date/Type/Reason Admit Date/Time May 17, 2016 at 20:38 Subjective Tired this morning Objective Vital Signs Date Time Temp Pulse Resp B/P Pulse Ox O2 Delivery O2 Flow Rate FiO2 05/23/16 02:42 83 114/50 05/22/16 20:21 98.6 17 93 05/20/16 20:00 Room Air Intake and Output 05/22/16 05/22/16 05/23/16 14:59 22:59 06:59 Intake Total 480 ml 640 ml 300 ml Output Total 400 ml 200 ml 250 ml Balance 80 ml 440 ml 50 ml INTERDISCIPLINARY TEAM CONFERENCE BOWEL- Cont BLADDER-Cont SKIN- intact OT- DRESSING-min/mod BATHING-min/mod TOILETING-min/mod PT- BED MOBILITY-cga TRANSFERS-cga AMBULATION-cga 150 feet SPEECH- COGNITION-min A/P- Interdisciplinary team conference held today. Please see interdisciplinary sheet. Working toward d.cSallie on 05/30 with post discharge follow up of physical therapy, occupational therapy. Results/Medications Result Diagram: 05/23/16 1035 05/23/16 1035 Results 24 hrs Laboratory Tests Test 05/22/16 12:09 05/22/16 16:40 05/22/16 20:42 05/23/16 01:48 Bedside Glucose 255 H 253 H 314 H 204 Test 05/23/16 07:17 05/23/16 10:35 Bedside Glucose 162 Anion Gap 15 Basophils # 0.0 Basophils % 0.2 Blood Morphology Comment Blood Urea Nitrogen 36 H Calcium Level 8.6 Carbon Dioxide Level 26 Chloride Level 101 Creatinine 1.68 H Eosinophils # 0.5 Eosinophils % 5.5 Glucose Level 254 H Hematocrit 31.4 L Hemoglobin 10.4 L Lymphocytes # 1.2 Lymphocytes % 12.4 L Mean Corpuscular Hemoglobin 29.8 Mean Corpuscular Hemoglobin Concent 33.3 Mean Corpuscular Volume 89.6 Mean Platelet Volume 7.3 L Monocytes # 0.6 Monocytes % 6.2 Neutrophils # 7.4 Neutrophils % 75.7 Nucleated Red Blood Cells # 0.0 Nucleated Red Blood Cells % 0.0 Platelet Count 340 Potassium Level 4.9 Red Blood Count 3.51 L Red Cell Distribution Width 13.3 Sodium Level 137 White Blood Count 9.8 Medications Current Medications Aspirin (Aspirin) 81 mg DAILY PO Last administered on 05/23/16 08:05; Admin Dose 81 MG; Start 05/18/16 at 09:00 Atorvastatin Calcium (Lipitor) 80 mg DAILY@21 PO Last administered on 05/22/16 20:25; Admin Dose 80 MG; Start 05/17/16 at 23:00 Clopidogrel Bisulfate (plaVIX) 75 mg DAILY PO Last administered on 05/23/16 08: 06; Admin Dose 75 MG; Start 05/18/16 at 09:00 Dutasteride (Avodart) 0.5 mg DAILY PO Last administered on 05/23/16 09:41; Admin Dose 0.5 MG; Start 05/18/16 at 09:00 Insulin Glargine (Lantus) 13 unit HS SC Last administered on 05/22/16 20:48; Admin Dose 13 UNIT; Start 05/17/16 at 23:00 Pantoprazole (Protonix Tab) 40 mg DAILY@06 PO Last administered on 05/23/16 06: 15; Admin Dose 40 MG; Start 05/18/16 at 06:00 Acetaminophen (Tylenol Tab) 650 mg Q4H PRN PO MILD PAIN OR FEVER; Start at 23:30 Clonidine (Catapres) 0.1 mg Q4H PRN PO ELEVATED BLOOD PRESSURE Last administered on 05/19/16at 20:28; Admin Dose 0.1 MG; Start 05/17/16 at 23:30 Ondansetron HCl (Zofran Inj) 4 mg Q6H PRN IV NAUSEA AND/OR VOMITING; Start at 23:30 Tamsulosin HCl (Flomax) 0.4 mg DAILY@21 PO Last administered on 05/22/16 20:24 ; Admin Dose 0.4 MG; Start 05/17/16 at 23:00 Diagnostic Test (Pha) (Accucheck) 1 ea 02 XX Last administered on 05/23/16 02: 00; Admin Dose 1 EA; Start 05/18/16 at 02:00 Miscellaneous Information 1 ea NOTE XX ; Start 05/17/16 at 23:30 Glucose (Glutose) 15 gm Q15M PRN PO DECREASED GLUCOSE; Start 05/17/16 at 23:30 Glucose (Glutose) 22.5 gm Q15M PRN PO DECREASED GLUCOSE; Start 05/17/16 at 23: 30 Dextrose (D50w Syringe) 25 ml Q15M PRN IV DECREASED GLUCOSE; Start 05/17/16 at 23:30 Dextrose (D50w Syringe) 50 ml Q15M PRN IV DECREASED GLUCOSE; Start 05/17/16 at 23:30 Glucagon (Glucagen) 1 mg Q15M PRN IM DECREASED GLUCOSE; Start 05/17/16 at 23: 30 Glucose (Glutose) 15 gm Q15M PRN BUCCAL DECREASED GLUCOSE; Start 05/17/16 at 23:30 Acetaminophen/ Hydrocodone Bitart ([place] (5/325)) 1 tab Q6H PRN PO PAIN Last administered on 05/23/16 08:07; Admin Dose 1 TAB; Start 05/17/16 at 23:30 Docusate Sodium (Colace) 100 mg BID PO Last administered on 05/23/16 08:06; Admin Dose 100 MG; Start 05/18/16 at 09:00 Senna (Senokot) 1 tab HS PO Last administered on 05/22/16 20:24; Admin Dose 1 TAB; Start 05/18/16 at 21:00 Bisacodyl (Dulcolax Supp) 10 mg DAILY PRN [place] CONSTIPATION; Start 05/17/16 at 23:30 Magnesium Hydroxide (Milk Of Mag) 30 ml BID PRN PO CONSTIPATION; Start at 23:30 Lactulose (Enulose) 20 gm DAILY PRN PO CONSTIPATION Last administered on at 23:37; Admin Dose 20 GM; Start 05/17/16 at 23:30 Carvedilol (Coreg) 3.125 mg BID PO ; Start 05/23/16 at 21:00 Nifedipine (Procardia Xl) 30 mg DAILY PO ; Start 05/24/16 at 09:00 FAHAD MELTON MD May 23, 2016 11:12
--- NOTE | 2016-05-23 12:26 | PN ---
DATE: 05/23/2016 SUBJECTIVE: The patient noted to be more lethargic this morning, able to move all extremities, but is noted to have a change of condition, no other acute events noted overnight. No hemoptysis, hemat emesis, hematochezia. OBJECTIVE: VITAL SIGNS: Blood pressure 114/50, respiration is 18, pulse , temperature 98.5. HEENT: Head is normocephalic. NECK: Supple. HEART: Regular rate. LUNGS: Show diminished breath sounds at the base. ABDOMEN: Soft, nontender to palpation. No rebound or guarding. EXTREMITIES: Negative for clubbing, cyanosis, no edema. DERMATOLOGIC: No rashes. MUSCULOSKELETAL: No joint effusions. NEUROLOGIC: No change in exam. LABORATORY DATA: Currently pending. ASSESSMENT AND PLAN: 1. Acute right-sided cerebrovascular accident of the middle cerebral artery distribution with left upper extremity weakness. We will continue current treatment plan and monitor. 2. Lethargy, weakness, unclear etiology, may be related to recent changes in blood pressure medicat ions. Plan is to deescalate blood pressure medications. We will place parameters. We will also ch annika laboratory data, check a urinalysis, and monitor closely. Will do neuro checks q.4 hours. The patient has no new focal deficits during exam. If there is a further decline, will get a CT scan of the head. 3. Status post right carotid endarterectomy. 4. Hypertension. The patient is normotensive, somewhat low. Will deescalate blood pressure medica tions, will monitor. 5. Diabetes. Continue current insulin regimen. 6. Leukocytosis, improved. 7. Asymptomatic . Continue to monitor. 8. Chronic kidney disease stage III, renal function is stable. Continue supportive care, renally d ose all meds, avoid nephrotoxins. 9. BPH, continue Flomax. 10. History of coronary artery disease, status post coronary artery bypass graft. 11. Gastrointestinal and deep venous thrombosis prophylaxis. Continue proton pump inhibitor and se quential leg squeezers. Dictated By: RAYMOND BORREGO/NTS Conf#: [id number] DID#: [id number]
[2016-05-23 20:11] VITALS: BP 160/68; RESP 20
[2016-05-23 21:59] VITALS: BP 154/62; PULSE 88
[2016-05-23] MEDS: ATORVASTATIN 80 MG TAB PO SCH (22:00)
[2016-05-23] MEDS: TAMSULOSIN (SR) 0.4 MG CAP PO SCH (22:00)
[2016-05-23] MEDS: SENNA TAB PO SCH (22:00)
[2016-05-23] MEDS: INSULIN GLARGINE [LANtus] 3 ML PEN SC SCH (22:22)
[2016-05-24] MEDS: ACCUCHECK AT 2AM (Patients on SS coverage) XX SCH (02:00)
[2016-05-24] MEDS: PANTOPRAZOLE (EC) 40 MG TAB PO SCH (06:43)
[2016-05-24] MEDS: Insulin NOVOLOG SS MILD Algorithm (SS with meals and bedtime) SC SCH ×4 (07:05→21:20)
[2016-05-24 07:30] VITALS: BP 154/70; RESP 18
[2016-05-24 08:41] VITALS: BP 154/70; PULSE 78; RESP 18
[2016-05-24] MEDS: DOCUSATE SODIUM 100 MG CAP PO SCH ×2 (09:04→21:00)
[2016-05-24] MEDS: REPAGLINIDE 1 MG TAB PO SCH ×3 (09:04→17:22)
[2016-05-24] MEDS: ASPIRIN 81 MG TAB PO SCH (09:05)
[2016-05-24] MEDS: CLOPIDOGREL 75 MG TAB PO SCH (09:06)
[2016-05-24] MEDS: DUTASTERIDE 0.5 MG CAP PO SCH (09:06)
[2016-05-24] MEDS: NIFEdipine (XL) 30 MG TAB PO SCH (09:06)
--- NOTE | 2016-05-24 10:42 | PN ---
DATE: 05/24/2016 SUBJECTIVE: The patient is more alert today, less lethargic. No other acute events noted. No hemo ptysis, hematemesis or hematochezia. OBJECTIVE: VITAL SIGNS: Blood pressure is 154/70, respiration 18, pulse 78, temperature 98.0. HEENT: Head is normocephalic. NECK: Supple. HEART: Regular rate. LUNGS: Show diminished breath sounds at the base. ABDOMEN: Soft, nontender to palpation. No rebound or guarding. EXTREMITIES: Negative for clubbing, cyanosis. No edema. DERMATOLOGIC: No rashes. MUSCULOSKELETAL: No joint effusions. NEUROLOGIC: No change in exam. MEDICATIONS: Have been reviewed. LABORATORY DATA: Has been reviewed from 05/23/2016, showed a white count 9.8, hemoglobin 10.4, arabella tocrit 31.4, platelet count 340. BMP shows sodium 137, potassium 4.9, BUN 36, creatinine 1.68. ASSESSMENT AND PLAN: 1. 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 The patient's neurologic status has been stable. Continue current treatment plan. Continue PT, OT. 2. Lethargy, weakness. Etiology is unclear, possibly related to blood pressure medications. The p atient is improved clinically, more alert today. Laboratory data was reviewed. We will continue to monitor. 3. Status post right carotid endarterectomy. 4. Hypertension. Blood pressure stable, continue to monitor. 5. Diabetes, continue Accu-Cheks and sliding scale. 6. Asymptomatic pyuria. Continue to monitor. 7. Chronic kidney disease, stage III. Renal function stable. Continue supportive care, renally do se all meds. 8. Benign prostatic hypertrophy. Continue Flomax. 9. History of coronary artery disease, status post coronary artery bypass graft. 10. Diabetes. Continue Accu-Cheks, insulin sliding scale. Continue current insulin regimen. 11. Status post leukocytosis. 12. Gastrointestinal and deep venous thrombosis prophylaxis. Continue proton pump inhibitor and se quential leg squeezers. Dictated By: RAYMOND APONTE DO NR/NTS Conf#: [id number] DID#: [id number]
[2016-05-24 10:58] VITALS: BP 149/64; PULSE 79
--- NOTE | 2016-05-24 11:26 | CONS ---
Date/Time of Note Date/Time of Note DATE: 05/24/16 TIME: 11:25 Consult Date/Type/Reason Admit Date/Time May 17, 2016 at 20:38 Subjective Feeling much better today Objective pulm- CTA card-s1 s2 sba ambulation 150 feet Vital Signs Date Time Temp Pulse Resp B/P Pulse Ox O2 Delivery O2 Flow Rate FiO2 05/24/16 10:58 79 149/64 05/24/16 08:41 98.0 18 97 Room Air 05/23/16 09:20 2.0 Intake and Output 05/23/16 05/23/16 05/24/16 15:00 23:00 07:00 Intake Total 200 ml 560 ml Output Total 500 ml Balance 200 ml 560 ml -500 ml Results/Medications Result Diagram: 05/23/16 1035 05/23/16 1035 Results 24 hrs Laboratory Tests Test 05/23/16 11:57 05/23/16 16:40 05/23/16 20:32 05/24/16 02:32 Bedside Glucose 291 H 309 H 276 H 135 Test 05/24/16 07:39 Bedside Glucose 98 Medications Current Medications Aspirin (Aspirin) 81 mg DAILY PO Last administered on 05/24/16 09:05; Admin Dose 81 MG; Start 05/18/16 at 09:00 Atorvastatin Calcium (Lipitor) 80 mg DAILY@21 PO Last administered on 05/23/16 22:00; Admin Dose 80 MG; Start 05/17/16 at 23:00 Clopidogrel Bisulfate (plaVIX) 75 mg DAILY PO Last administered on 05/24/16 09: 06; Admin Dose 75 MG; Start 05/18/16 at 09:00 Dutasteride (Avodart) 0.5 mg DAILY PO Last administered on 05/24/16 09:06; Admin Dose 0.5 MG; Start 05/18/16 at 09:00 Insulin Glargine (Lantus) 13 unit HS SC Last administered on 05/23/16 22:22; Admin Dose 13 UNIT; Start 05/17/16 at 23:00 Pantoprazole (Protonix Tab) 40 mg DAILY@06 PO Last administered on 05/24/16 06: 43; Admin Dose 40 MG; Start 05/18/16 at 06:00 Acetaminophen (Tylenol Tab) 650 mg Q4H PRN PO MILD PAIN OR FEVER; Start at 23:30 Clonidine (Catapres) 0.1 mg Q4H PRN PO ELEVATED BLOOD PRESSURE Last administered on 05/19/16at 20:28; Admin Dose 0.1 MG; Start 05/17/16 at 23:30 Ondansetron HCl (Zofran Inj) 4 mg Q6H PRN IV NAUSEA AND/OR VOMITING; Start at 23:30 Tamsulosin HCl (Flomax) 0.4 mg DAILY@21 PO Last administered on 05/23/16 22:00 ; Admin Dose 0.4 MG; Start 05/17/16 at 23:00 Diagnostic Test (Pha) (Accucheck) 1 ea 02 XX Last administered on 05/23/16 02: 00; Admin Dose 1 EA; Start 05/18/16 at 02:00 Miscellaneous Information 1 ea NOTE XX ; Start 05/17/16 at 23:30 Glucose (Glutose) 15 gm Q15M PRN PO DECREASED GLUCOSE; Start 05/17/16 at 23:30 Glucose (Glutose) 22.5 gm Q15M PRN PO DECREASED GLUCOSE; Start 05/17/16 at 23: 30 Dextrose (D50w Syringe) 25 ml Q15M PRN IV DECREASED GLUCOSE; Start 05/17/16 at 23:30 Dextrose (D50w Syringe) 50 ml Q15M PRN IV DECREASED GLUCOSE; Start 05/17/16 at 23:30 Glucagon (Glucagen) 1 mg Q15M PRN IM DECREASED GLUCOSE; Start 05/17/16 at 23: 30 Glucose (Glutose) 15 gm Q15M PRN BUCCAL DECREASED GLUCOSE; Start 05/17/16 at 23:30 Acetaminophen/ Hydrocodone Bitart ([place] (5/325)) 1 tab Q6H PRN PO PAIN Last administered on 05/23/16 08:07; Admin Dose 1 TAB; Start 05/17/16 at 23:30 Docusate Sodium (Colace) 100 mg BID PO Last administered on 05/24/16 09:04; Admin Dose 100 MG; Start 05/18/16 at 09:00 Senna (Senokot) 1 tab HS PO Last administered on 05/23/16 22:00; Admin Dose 1 TAB; Start 05/18/16 at 21:00 Bisacodyl (Dulcolax Supp) 10 mg DAILY PRN [place] CONSTIPATION; Start 05/17/16 at 23:30 Magnesium Hydroxide (Milk Of Mag) 30 ml BID PRN PO CONSTIPATION; Start at 23:30 Lactulose (Enulose) 20 gm DAILY PRN PO CONSTIPATION Last administered on at 23:37; Admin Dose 20 GM; Start 05/17/16 at 23:30 Carvedilol (Coreg) 3.125 mg BID PO Last administered on 05/24/16 09:05; Admin Dose 3.125 MG; Start 05/23/16 at 21:00 Nifedipine (Procardia Xl) 30 mg DAILY PO Last administered on 05/24/16 09:06; Admin Dose 30 MG; Start 05/24/16 at 09:00 Assessment/Plan Additional Assessment/Plan Rehab- R infarct CVA with L anel Excellent progress with rehab DM HTN cad/cabg CKD s/p CEA orthostatic-improved FAHAD MELTON MD May 24, 2016 11:26
--- NOTE | 2016-05-24 18:40 | CONS ---
DATE OF ADMISSION: 05/17/2016 DATE OF CONSULTATION: 05/24/2016 TYPE OF CONSULTATION: Psychological. REFERRING PHYSICIAN: Fahad Singletary MD CONSULTING PSYCHOLOGIST: Shelby Malagon, PhD REASON FOR CONSULTATION: This consultation was requested by Dr. Gladys Singletary in order to evaluate the cognitive and emotional functioning of this patient related to his present medical condition. HISTORY OF PRESENT ILLNESS: The patient is an 81-year-old male. He has a history of coronary arter y disease, hypertension, and diabetes. The patient underwent a right carotid endarterectomy for rig ht ICA stenosis. The patient was cleared medically and sent to the acute rehabilitation unit for co mprehensive acute multidisciplinary rehabilitation. The patient is very frustrated about his presen t medical condition and, particularly his diabetes, which seems to be at times out of control. Ther e have been attempts to stabilize his blood sugar levels and his blood pressure. The patient is con cerned about his medical condition and is very motivated to get better and he wants to leave the [facility] as soon as possible. FAMILY AND SOCIAL HISTORY: The patient reports that he lives in an apartment with his 48-year-old s on and he wants to return there after discharge. MEDICATIONS: The patient is currently not on any psychotropic medications. SUBSTANCE USE: The patient denies any use of alcohol or other drugs. The patient does report that he smokes approximately a pack of cigarettes per day. The patient was informed that with his curren t medical condition, he might want to consider smoking cessation. MENTAL STATUS EXAMINATION: APPEARANCE: The patient was seen in his wheelchair. The patient was of average height and weight. The patient has mohr hair. The patient is right-handed. BEHAVIOR: The patient was cooperative during the consultation. The patient did attempt to answer a ll questions presented to him by the interviewer. MOOD AND AFFECT: The patient's mood appears to be somewhat frustrated and slightly depressed. Affe ct does appear to be just slightly anxious. PERCEPTION: The patient reports no hallucinations or delusions. The patient was alert to person, p lace, situation, and time. MEMORY AND COGNITION: The patient's memory and cognition appear to be basically intact. He was abl e to name of the hospital. The patient was able to name the month and the year. The patient was ab le to say who the news department intern is and who the President Elect is. INTELLIGENCE: Intelligence appears to fall in the average range. INSIGHT: Fair. JUDGMENT: Fair. THOUGHT CONTENT: The patient is concerned about his present medical condition. The patient is very frustrated about his labile hypertension and his blood sugar levels. The patient is motivated to g et better and does want to return home as soon as possible. DISCUSSION: The patient can likely benefit from some cognitive/behavioral psychotherapy while he is on the unit. This psychotherapy would focus on his underlying level of frustration and depression. It would be helping him work on all his issues regarding all his medical problems. 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 Thank you very much, Dr. Gladys Singletary, for referring this individual. Please do not hesitate to ca ll if you have additional questions. Dictated By: SHELBY MALAGON PHD RK/DAMARI Conf#: [id number] DID#: [id number] CC: FAHAD SINGLETARY MD;*[facility]*
[2016-05-24 20:39] VITALS: BP 165/72; RESP 18
[2016-05-24] MEDS: SENNA TAB PO SCH (21:00)
[2016-05-24] MEDS: TAMSULOSIN (SR) 0.4 MG CAP PO SCH (21:10)
[2016-05-24] MEDS: ATORVASTATIN 80 MG TAB PO SCH (21:12)
[2016-05-24] MEDS: INSULIN GLARGINE [LANtus] 3 ML PEN SC SCH (21:18)
[2016-05-25] MEDS: ACCUCHECK AT 2AM (Patients on SS coverage) XX SCH (02:00)
[2016-05-25] MEDS: PANTOPRAZOLE (EC) 40 MG TAB PO SCH (06:05)
[2016-05-25 07:50] VITALS: BP 133/63; RESP 18
[2016-05-25 08:00] VITALS: BP 133/63; PULSE 76; RESP 18
[2016-05-25] MEDS: ASPIRIN 81 MG TAB PO SCH (08:46)
[2016-05-25] MEDS: DUTASTERIDE 0.5 MG CAP PO SCH (08:46)
[2016-05-25] MEDS: REPAGLINIDE 1 MG TAB PO SCH ×2 (08:46→12:35)
[2016-05-25] MEDS: CLOPIDOGREL 75 MG TAB PO SCH (08:46)
[2016-05-25] MEDS: DOCUSATE SODIUM 100 MG CAP PO SCH ×2 (08:47→21:00)
[2016-05-25] MEDS: NIFEdipine (XL) 30 MG TAB PO SCH (08:47)
[2016-05-25] MEDS: Insulin NOVOLOG SS MILD Algorithm (SS with meals and bedtime) SC SCH ×4 (08:50→21:29)
--- NOTE | 2016-05-25 12:14 | CONS ---
Date/Time of Note Date/Time of Note DATE: 05/25/16 TIME: 12:14 Consult Date/Type/Reason Admit Date/Time May 17, 2016 at 20:38 Subjective Feeling better Objective pulm-CTA sba ambulation 200 feet wtih SPC Vital Signs Date Time Temp Pulse Resp B/P Pulse Ox O2 Delivery O2 Flow Rate FiO2 05/25/16 07:50 98.6 76 18 133/63 97 05/24/16 08:41 Room Air 05/23/16 09:20 2.0 Intake and Output 05/24/16 05/24/16 05/25/16 15:00 23:00 07:00 Intake Total 480 ml 240 ml 300 ml Balance 480 ml 240 ml 300 ml Results/Medications Result Diagram: 05/23/16 1035 05/23/16 1035 Results 24 hrs Laboratory Tests Test 05/24/16 16:48 05/24/16 20:08 05/25/16 02:23 05/25/16 07:30 Bedside Glucose 184 214 267 H 175 Medications Current Medications Aspirin (Aspirin) 81 mg DAILY PO Last administered on 05/25/16 08:46; Admin Dose 81 MG; Start 05/18/16 at 09:00 Atorvastatin Calcium (Lipitor) 80 mg DAILY@21 PO Last administered on 05/24/16 21:12; Admin Dose 80 MG; Start 05/17/16 at 23:00 Clopidogrel Bisulfate (plaVIX) 75 mg DAILY PO Last administered on 05/25/16 08: 46; Admin Dose 75 MG; Start 05/18/16 at 09:00 Dutasteride (Avodart) 0.5 mg DAILY PO Last administered on 05/25/16 08:46; Admin Dose 0.5 MG; Start 05/18/16 at 09:00 Pantoprazole (Protonix Tab) 40 mg DAILY@06 PO Last administered on 05/25/16 06: 05; Admin Dose 40 MG; Start 05/18/16 at 06:00 Acetaminophen (Tylenol Tab) 650 mg Q4H PRN PO MILD PAIN OR FEVER; Start at 23:30 Clonidine (Catapres) 0.1 mg Q4H PRN PO ELEVATED BLOOD PRESSURE Last administered on 05/19/16at 20:28; Admin Dose 0.1 MG; Start 05/17/16 at 23:30 Ondansetron HCl (Zofran Inj) 4 mg Q6H PRN IV NAUSEA AND/OR VOMITING; Start at 23:30 Tamsulosin HCl (Flomax) 0.4 mg DAILY@21 PO Last administered on 05/24/16 21:10 ; Admin Dose 0.4 MG; Start 05/17/16 at 23:00 Diagnostic Test (Pha) (Accucheck) 1 ea 02 XX Last administered on 05/23/16 02: 00; Admin Dose 1 EA; Start 05/18/16 at 02:00 Miscellaneous Information 1 ea NOTE XX ; Start 05/17/16 at 23:30 Glucose (Glutose) 15 gm Q15M PRN PO DECREASED GLUCOSE; Start 05/17/16 at 23:30 Glucose (Glutose) 22.5 gm Q15M PRN PO DECREASED GLUCOSE; Start 05/17/16 at 23: 30 Dextrose (D50w Syringe) 25 ml Q15M PRN IV DECREASED GLUCOSE; Start 05/17/16 at 23:30 Dextrose (D50w Syringe) 50 ml Q15M PRN IV DECREASED GLUCOSE; Start 05/17/16 at 23:30 Glucagon (Glucagen) 1 mg Q15M PRN IM DECREASED GLUCOSE; Start 05/17/16 at 23: 30 Glucose (Glutose) 15 gm Q15M PRN BUCCAL DECREASED GLUCOSE; Start 05/17/16 at 23:30 Acetaminophen/ Hydrocodone Bitart ([place] (5/325)) 1 tab Q6H PRN PO PAIN Last administered on 05/23/16 08:07; Admin Dose 1 TAB; Start 05/17/16 at 23:30 Docusate Sodium (Colace) 100 mg BID PO Last administered on 05/25/16 08:47; Admin Dose 100 MG; Start 05/18/16 at 09:00 Senna (Senokot) 1 tab HS PO Last administered on 05/23/16 22:00; Admin Dose 1 TAB; Start 05/18/16 at 21:00 Bisacodyl (Dulcolax Supp) 10 mg DAILY PRN [place] CONSTIPATION; Start 05/17/16 at 23:30 Magnesium Hydroxide (Milk Of Mag) 30 ml BID PRN PO CONSTIPATION; Start at 23:30 Lactulose (Enulose) 20 gm DAILY PRN PO CONSTIPATION Last administered on at 23:37; Admin Dose 20 GM; Start 05/17/16 at 23:30 Carvedilol (Coreg) 3.125 mg BID PO Last administered on 05/25/16 08:46; Admin Dose 3.125 MG; Start 05/23/16 at 21:00 Nifedipine (Procardia Xl) 30 mg DAILY PO Last administered on 05/25/16 08:47; Admin Dose 30 MG; Start 05/24/16 at 09:00 Insulin Glargine (Lantus) 16 unit HS SC Last administered on 05/24/16 21:18; Admin Dose 16 UNIT; Start 05/24/16 at 21:00 Assessment/Plan Additional Assessment/Plan Rehab- R infarct CVA with L anel Continue rehab activities. DM HTN cad/cabg CKD s/p CEA orthostatic-improved FAHAD MELTON MD May 25, 2016 12:14
--- NOTE | 2016-05-25 14:42 | CONS ---
Date/Time of Note Date/Time of Note DATE: 05/25/16 TIME: 14:40 Consult Date/Type/Reason Admit Date/Time May 17, 2016 at 20:38 Initial Consult Date Subjective SUBJECTIVE: The patient is m alert today. No other acute events noted. No hemoptysis, hematemesis or hematochezia. Tolerates meds and therapies. POC reviewed with dr. lea. noted hyperglycemia. OBJECTIVE: HEENT: Head is normocephalic. NECK: Supple. HEART: Regular rate. LUNGS: Show diminished breath sounds at the base. ABDOMEN: Soft, nontender to palpation. No rebound or guarding. EXTREMITIES: Negative for clubbing, cyanosis. No edema. DERMATOLOGIC: No rashes. MUSCULOSKELETAL: No joint effusions. NEUROLOGIC: No change in exam. ASSESSMENT AND PLAN: 1. 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 The patient's neurologic status has been stable. Continue current treatment plan. Continue PT, OT. 2. Lethargy, weakness. Etiology is unclear, possibly related to blood pressure medications. The patient is improved clinically, more alert today. Laboratory data was reviewed. We will continue to monitor. 3. Status post right carotid endarterectomy. 4. Hypertension. Blood pressure stable, continue to monitor. 5. Diabetes, continue Accu-Cheks and sliding scale. diabetes consult ordered. will defer to them for now. 6. Asymptomatic pyuria. Continue to monitor. 7. Chronic kidney disease, stage III. Renal function stable. Continue supportive care, renally dose all meds. 8. Benign prostatic hypertrophy. Continue Flomax. 9. History of coronary artery disease, status post coronary artery bypass graft. 10. Diabetes. Continue Accu-Cheks, insulin sliding scale. 11. Status post leukocytosis. 12. Gastrointestinal and deep venous thrombosis prophylaxis. Continue proton pump inhibitor and sequential leg squeezers. Objective Vital Signs Date Time Temp Pulse Resp B/P Pulse Ox O2 Delivery O2 Flow Rate FiO2 05/25/16 07:50 98.6 76 18 133/63 97 05/24/16 08:41 Room Air 05/23/16 09:20 2.0 Intake and Output 05/24/16 05/24/16 05/25/16 15:00 23:00 07:00 Intake Total 480 ml 240 ml 300 ml Balance 480 ml 240 ml 300 ml Results/Medications Result Diagram: 05/23/16 1035 05/23/16 1035 Results 24 hrs Laboratory Tests Test 05/24/16 16:48 05/24/16 20:08 05/25/16 02:23 05/25/16 07:30 Bedside Glucose 184 214 267 H 175 Test 05/25/16 12:11 Bedside Glucose 380 H Medications Current Medications Aspirin (Aspirin) 81 mg DAILY PO Last administered on 05/25/16 08:46; Admin Dose 81 MG; Start 05/18/16 at 09:00 Atorvastatin Calcium (Lipitor) 80 mg DAILY@21 PO Last administered on 05/24/16 21:12; Admin Dose 80 MG; Start 05/17/16 at 23:00 Clopidogrel Bisulfate (plaVIX) 75 mg DAILY PO Last administered on 05/25/16 08: 46; Admin Dose 75 MG; Start 05/18/16 at 09:00 Dutasteride (Avodart) 0.5 mg DAILY PO Last administered on 05/25/16 08:46; Admin Dose 0.5 MG; Start 05/18/16 at 09:00 Pantoprazole (Protonix Tab) 40 mg DAILY@06 PO Last administered on 05/25/16 06: 05; Admin Dose 40 MG; Start 05/18/16 at 06:00 Acetaminophen (Tylenol Tab) 650 mg Q4H PRN PO MILD PAIN OR FEVER; Start at 23:30 Clonidine (Catapres) 0.1 mg Q4H PRN PO ELEVATED BLOOD PRESSURE Last administered on 05/19/16at 20:28; Admin Dose 0.1 MG; Start 05/17/16 at 23:30 Ondansetron HCl (Zofran Inj) 4 mg Q6H PRN IV NAUSEA AND/OR VOMITING; Start at 23:30 Tamsulosin HCl (Flomax) 0.4 mg DAILY@21 PO Last administered on 05/24/16 21:10 ; Admin Dose 0.4 MG; Start 05/17/16 at 23:00 Diagnostic Test (Pha) (Accucheck) 1 ea 02 XX Last administered on 05/23/16 02: 00; Admin Dose 1 EA; Start 05/18/16 at 02:00 Miscellaneous Information 1 ea NOTE XX ; Start 05/17/16 at 23:30 Glucose (Glutose) 15 gm Q15M PRN PO DECREASED GLUCOSE; Start 05/17/16 at 23:30 Glucose (Glutose) 22.5 gm Q15M PRN PO DECREASED GLUCOSE; Start 05/17/16 at 23: 30 Dextrose (D50w Syringe) 25 ml Q15M PRN IV DECREASED GLUCOSE; Start 05/17/16 at 23:30 Dextrose (D50w Syringe) 50 ml Q15M PRN IV DECREASED GLUCOSE; Start 05/17/16 at 23:30 Glucagon (Glucagen) 1 mg Q15M PRN IM DECREASED GLUCOSE; Start 05/17/16 at 23: 30 Glucose (Glutose) 15 gm Q15M PRN BUCCAL DECREASED GLUCOSE; Start 05/17/16 at 23:30 Acetaminophen/ Hydrocodone Bitart ([place] (5/325)) 1 tab Q6H PRN PO PAIN Last administered on 05/23/16 08:07; Admin Dose 1 TAB; Start 05/17/16 at 23:30 Docusate Sodium (Colace) 100 mg BID PO Last administered on 05/25/16 08:47; Admin Dose 100 MG; Start 05/18/16 at 09:00 Senna (Senokot) 1 tab HS PO Last administered on 05/23/16 22:00; Admin Dose 1 TAB; Start 05/18/16 at 21:00 Bisacodyl (Dulcolax Supp) 10 mg DAILY PRN [place] CONSTIPATION; Start 05/17/16 at 23:30 Magnesium Hydroxide (Milk Of Mag) 30 ml BID PRN PO CONSTIPATION; Start at 23:30 Lactulose (Enulose) 20 gm DAILY PRN PO CONSTIPATION Last administered on at 23:37; Admin Dose 20 GM; Start 05/17/16 at 23:30 Carvedilol (Coreg) 3.125 mg BID PO Last administered on 05/25/16 08:46; Admin Dose 3.125 MG; Start 05/23/16 at 21:00 Nifedipine (Procardia Xl) 30 mg DAILY PO Last administered on 05/25/16 08:47; Admin Dose 30 MG; Start 05/24/16 at 09:00 Insulin Glargine (Lantus) 16 unit HS SC Last administered on 05/24/16 21:18; Admin Dose 16 UNIT; Start 05/24/16 at 21:00 RICHELLE KNIGHT MD May 25, 2016 14:42
--- NOTE | 2016-05-25 17:06 | RADRPT ---
PROCEDURE: XR Left Hand. CLINICAL INDICATION: Left hand pain. TECHNIQUE: Three views. Frontal lateral and oblique images of the left hand were obtained. COMPARISON: No prior studies are available for comparison. FINDINGS: There is no fracture or dislocation. The soft tissues are normal. Articular surfaces are intact. There is no lytic or blastic lesion. There is no radiopaque foreign body. IMPRESSION: 1. Unremarkable images of the left hand. RPTAT: QQ .Anand Null MD, MD Date Time Electronically viewed and signed by .Anand Null MD, MD on 05/25/2016 17:06 .R/
[2016-05-25] MEDS: REPAGLINIDE 2 MG TAB PO SCH (18:07)
[2016-05-25 20:05] VITALS: BP 165/92; RESP 19
[2016-05-25] MEDS: SENNA TAB PO SCH (21:00)
[2016-05-25] MEDS: TAMSULOSIN (SR) 0.4 MG CAP PO SCH (21:20)
[2016-05-25] MEDS: ATORVASTATIN 80 MG TAB PO SCH (21:21)
[2016-05-25] MEDS: INSULIN GLARGINE [LANtus] 3 ML PEN SC SCH (21:28)
[2016-05-26] MEDS: ACCUCHECK AT 2AM (Patients on SS coverage) XX SCH (02:00)
[2016-05-26] MEDS: PANTOPRAZOLE (EC) 40 MG TAB PO SCH (05:46)
[2016-05-26 07:40] VITALS: BP 171/73; RESP 18
[2016-05-26] MEDS: REPAGLINIDE 2 MG TAB PO SCH ×3 (08:09→17:24)
[2016-05-26] MEDS: Insulin NOVOLOG SS MILD Algorithm (SS with meals and bedtime) SC SCH ×4 (08:11→21:41)
[2016-05-26] MEDS: ASPIRIN 81 MG TAB PO SCH (08:55)
[2016-05-26] MEDS: DOCUSATE SODIUM 100 MG CAP PO SCH ×2 (08:55→21:27)
[2016-05-26] MEDS: CLOPIDOGREL 75 MG TAB PO SCH (08:55)
[2016-05-26] MEDS: NIFEdipine (XL) 30 MG TAB PO SCH (08:56)
[2016-05-26] MEDS: DUTASTERIDE 0.5 MG CAP PO SCH (08:56)
--- NOTE | 2016-05-26 12:54 | CONS ---
Date/Time of Note Date/Time of Note DATE: 05/26/16 TIME: 12:50 Consult Date/Type/Reason Admit Date/Time May 17, 2016 at 20:38 Subjective Doing well with therapies Objective pulm - cta sba ambulation Vital Signs Date Time Temp Pulse Resp B/P Pulse Ox O2 Delivery O2 Flow Rate FiO2 05/26/16 07:40 98.5 79 18 171/73 96 05/25/16 08:00 Room Air 05/23/16 09:20 2.0 Intake and Output 05/25/16 05/25/16 05/26/16 15:00 23:00 07:00 Intake Total 480 ml 240 ml 240 ml Output Total 400 ml 400 ml 150 ml Balance 80 ml -160 ml 90 ml Results/Medications Result Diagram: 05/23/16 1035 05/23/16 1035 Results 24 hrs Laboratory Tests Test 05/25/16 17:16 05/25/16 21:24 05/26/16 02:21 05/26/16 06:20 Bedside Glucose 230 H 321 H 237 H Hemoglobin A1c 8.1 H Test 05/26/16 07:41 05/26/16 12:24 Bedside Glucose 206 243 H Medications Current Medications Aspirin (Aspirin) 81 mg DAILY PO Last administered on 05/26/16 08:55; Admin Dose 81 MG; Start 05/18/16 at 09:00 Atorvastatin Calcium (Lipitor) 80 mg DAILY@21 PO Last administered on 05/25/16 21:21; Admin Dose 80 MG; Start 05/17/16 at 23:00 Clopidogrel Bisulfate (plaVIX) 75 mg DAILY PO Last administered on 05/26/16 08: 55; Admin Dose 75 MG; Start 05/18/16 at 09:00 Dutasteride (Avodart) 0.5 mg DAILY PO Last administered on 05/26/16 08:56; Admin Dose 0.5 MG; Start 05/18/16 at 09:00 Pantoprazole (Protonix Tab) 40 mg DAILY@06 PO Last administered on 05/26/16 05: 46; Admin Dose 40 MG; Start 05/18/16 at 06:00 Acetaminophen (Tylenol Tab) 650 mg Q4H PRN PO MILD PAIN OR FEVER; Start at 23:30 Clonidine (Catapres) 0.1 mg Q4H PRN PO ELEVATED BLOOD PRESSURE Last administered on 05/19/16at 20:28; Admin Dose 0.1 MG; Start 05/17/16 at 23:30 Ondansetron HCl (Zofran Inj) 4 mg Q6H PRN IV NAUSEA AND/OR VOMITING; Start at 23:30 Tamsulosin HCl (Flomax) 0.4 mg DAILY@21 PO Last administered on 05/25/16 21:20 ; Admin Dose 0.4 MG; Start 05/17/16 at 23:00 Diagnostic Test (Pha) (Accucheck) 1 ea 02 XX Last administered on 05/23/16 02: 00; Admin Dose 1 EA; Start 05/18/16 at 02:00 Miscellaneous Information 1 ea NOTE XX ; Start 05/17/16 at 23:30 Glucose (Glutose) 15 gm Q15M PRN PO DECREASED GLUCOSE; Start 05/17/16 at 23:30 Glucose (Glutose) 22.5 gm Q15M PRN PO DECREASED GLUCOSE; Start 05/17/16 at 23: 30 Dextrose (D50w Syringe) 25 ml Q15M PRN IV DECREASED GLUCOSE; Start 05/17/16 at 23:30 Dextrose (D50w Syringe) 50 ml Q15M PRN IV DECREASED GLUCOSE; Start 05/17/16 at 23:30 Glucagon (Glucagen) 1 mg Q15M PRN IM DECREASED GLUCOSE; Start 05/17/16 at 23: 30 Glucose (Glutose) 15 gm Q15M PRN BUCCAL DECREASED GLUCOSE; Start 05/17/16 at 23:30 Acetaminophen/ Hydrocodone Bitart ([place] (5/325)) 1 tab Q6H PRN PO PAIN Last administered on 05/23/16 08:07; Admin Dose 1 TAB; Start 05/17/16 at 23:30 Docusate Sodium (Colace) 100 mg BID PO Last administered on 05/26/16 08:55; Admin Dose 100 MG; Start 05/18/16 at 09:00 Senna (Senokot) 1 tab HS PO Last administered on 05/23/16 22:00; Admin Dose 1 TAB; Start 05/18/16 at 21:00 Bisacodyl (Dulcolax Supp) 10 mg DAILY PRN [place] CONSTIPATION; Start 05/17/16 at 23:30 Magnesium Hydroxide (Milk Of Mag) 30 ml BID PRN PO CONSTIPATION; Start at 23:30 Lactulose (Enulose) 20 gm DAILY PRN PO CONSTIPATION Last administered on at 23:37; Admin Dose 20 GM; Start 05/17/16 at 23:30 Carvedilol (Coreg) 3.125 mg BID PO Last administered on 05/26/16 08:55; Admin Dose 3.125 MG; Start 05/23/16 at 21:00 Nifedipine (Procardia Xl) 30 mg DAILY PO Last administered on 05/26/16 08:56; Admin Dose 30 MG; Start 05/24/16 at 09:00 Insulin Glargine (Lantus) 16 unit HS SC Last administered on 05/25/16 21:28; Admin Dose 16 UNIT; Start 05/24/16 at 21:00 Assessment/Plan Additional Assessment/Plan Rehab- R infarct CVA with L anel Continue rehab program. Doing well with single point cane DM HTN cad/cabg CKD s/p CEA orthostatic-improved FAHAD MELTON MD May 26, 2016 12:54
--- NOTE | 2016-05-26 16:43 | CONS ---
Date/Time of Note Date/Time of Note DATE: 05/26/16 TIME: 16:42 Consult Date/Type/Reason Admit Date/Time May 17, 2016 at 20:38 Subjective SUBJECTIVE: The patient is m alert today. No other acute events noted. No hemoptysis, hematemesis or hematochezia. Tolerates meds and therapies. POC reviewed with dr. lea. noted hyperglycemia. OBJECTIVE: HEENT: Head is normocephalic. NECK: Supple. HEART: Regular rate. LUNGS: Show diminished breath sounds at the base. ABDOMEN: Soft, nontender to palpation. No rebound or guarding. EXTREMITIES: Negative for clubbing, cyanosis. No edema. DERMATOLOGIC: No rashes. MUSCULOSKELETAL: No joint effusions. NEUROLOGIC: No change in exam. ASSESSMENT AND PLAN: 1. 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 The patient's neurologic status has been stable. Continue current treatment plan. Continue PT, OT. 2. Lethargy, weakness. Etiology is unclear, possibly related to blood pressure medications. The patient is improved clinically, more alert today. Laboratory data was reviewed. We will continue to monitor. 3. Status post right carotid endarterectomy. 4. Hypertension. Blood pressure stable, continue to monitor. 5. Diabetes, continue Accu-Cheks and sliding scale. diabetes consult ordered. prandin increased. will add tradjenta. 6. Asymptomatic pyuria. Continue to monitor. 7. Chronic kidney disease, stage III. Renal function stable. Continue supportive care, renally dose all meds. 8. Benign prostatic hypertrophy. Continue Flomax. 9. History of coronary artery disease, status post coronary artery bypass graft. 10. Diabetes. Continue Accu-Cheks, insulin sliding scale. 11. Status post leukocytosis. 12. Gastrointestinal and deep venous thrombosis prophylaxis. Continue proton pump inhibitor and sequential leg squeezers. Objective Vital Signs Date Time Temp Pulse Resp B/P Pulse Ox O2 Delivery O2 Flow Rate FiO2 05/26/16 07:40 98.5 79 18 171/73 96 05/25/16 08:00 Room Air 05/23/16 09:20 2.0 Intake and Output 05/25/16 05/25/16 05/26/16 15:00 23:00 07:00 Intake Total 480 ml 240 ml 240 ml Output Total 400 ml 400 ml 150 ml Balance 80 ml -160 ml 90 ml Results/Medications Result Diagram: 05/23/16 1035 05/23/16 1035 Results 24 hrs Laboratory Tests Test 05/25/16 17:16 05/25/16 21:24 05/26/16 02:21 05/26/16 06:20 Bedside Glucose 230 H 321 H 237 H Hemoglobin A1c 8.1 H Test 05/26/16 07:41 05/26/16 12:24 Bedside Glucose 206 243 H Medications Current Medications Aspirin (Aspirin) 81 mg DAILY PO Last administered on 05/26/16 08:55; Admin Dose 81 MG; Start 05/18/16 at 09:00 Atorvastatin Calcium (Lipitor) 80 mg DAILY@21 PO Last administered on 05/25/16 21:21; Admin Dose 80 MG; Start 05/17/16 at 23:00 Clopidogrel Bisulfate (plaVIX) 75 mg DAILY PO Last administered on 05/26/16 08: 55; Admin Dose 75 MG; Start 05/18/16 at 09:00 Dutasteride (Avodart) 0.5 mg DAILY PO Last administered on 05/26/16 08:56; Admin Dose 0.5 MG; Start 05/18/16 at 09:00 Pantoprazole (Protonix Tab) 40 mg DAILY@06 PO Last administered on 05/26/16 05: 46; Admin Dose 40 MG; Start 05/18/16 at 06:00 Acetaminophen (Tylenol Tab) 650 mg Q4H PRN PO MILD PAIN OR FEVER; Start at 23:30 Clonidine (Catapres) 0.1 mg Q4H PRN PO ELEVATED BLOOD PRESSURE Last administered on 05/19/16at 20:28; Admin Dose 0.1 MG; Start 05/17/16 at 23:30 Ondansetron HCl (Zofran Inj) 4 mg Q6H PRN IV NAUSEA AND/OR VOMITING; Start at 23:30 Tamsulosin HCl (Flomax) 0.4 mg DAILY@21 PO Last administered on 05/25/16 21:20 ; Admin Dose 0.4 MG; Start 05/17/16 at 23:00 Diagnostic Test (Pha) (Accucheck) 1 ea 02 XX Last administered on 05/23/16 02: 00; Admin Dose 1 EA; Start 05/18/16 at 02:00 Miscellaneous Information 1 ea NOTE XX ; Start 05/17/16 at 23:30 Glucose (Glutose) 15 gm Q15M PRN PO DECREASED GLUCOSE; Start 05/17/16 at 23:30 Glucose (Glutose) 22.5 gm Q15M PRN PO DECREASED GLUCOSE; Start 05/17/16 at 23: 30 Dextrose (D50w Syringe) 25 ml Q15M PRN IV DECREASED GLUCOSE; Start 05/17/16 at 23:30 Dextrose (D50w Syringe) 50 ml Q15M PRN IV DECREASED GLUCOSE; Start 05/17/16 at 23:30 Glucagon (Glucagen) 1 mg Q15M PRN IM DECREASED GLUCOSE; Start 05/17/16 at 23: 30 Glucose (Glutose) 15 gm Q15M PRN BUCCAL DECREASED GLUCOSE; Start 05/17/16 at 23:30 Acetaminophen/ Hydrocodone Bitart ([place] (5/325)) 1 tab Q6H PRN PO PAIN Last administered on 05/23/16 08:07; Admin Dose 1 TAB; Start 05/17/16 at 23:30 Docusate Sodium (Colace) 100 mg BID PO Last administered on 05/26/16 08:55; Admin Dose 100 MG; Start 05/18/16 at 09:00 Senna (Senokot) 1 tab HS PO Last administered on 05/23/16 22:00; Admin Dose 1 TAB; Start 05/18/16 at 21:00 Bisacodyl (Dulcolax Supp) 10 mg DAILY PRN [place] CONSTIPATION; Start 05/17/16 at 23:30 Magnesium Hydroxide (Milk Of Mag) 30 ml BID PRN PO CONSTIPATION; Start at 23:30 Lactulose (Enulose) 20 gm DAILY PRN PO CONSTIPATION Last administered on at 23:37; Admin Dose 20 GM; Start 05/17/16 at 23:30 Carvedilol (Coreg) 3.125 mg BID PO Last administered on 05/26/16 08:55; Admin Dose 3.125 MG; Start 05/23/16 at 21:00 Nifedipine (Procardia Xl) 30 mg DAILY PO Last administered on 05/26/16 08:56; Admin Dose 30 MG; Start 05/24/16 at 09:00 Insulin Glargine (Lantus) 16 unit HS SC Last administered on 05/25/16t 21:28; Admin Dose 16 UNIT; Start 05/24/16 at 21:00 RICHELLE KNIGHT MD May 26, 2016 16:43
[2016-05-26] MEDS: ATORVASTATIN 80 MG TAB PO SCH (21:27)
[2016-05-26] MEDS: SENNA TAB PO SCH (21:27)
[2016-05-26] MEDS: TAMSULOSIN (SR) 0.4 MG CAP PO SCH (21:27)
[2016-05-26 21:38] VITALS: BP 143/66; RESP 18
[2016-05-26] MEDS: INSULIN GLARGINE [LANtus] 3 ML PEN SC SCH (21:39)
[2016-05-27] MEDS: ACCUCHECK AT 2AM (Patients on SS coverage) XX SCH (02:00)
[2016-05-27] MEDS: PANTOPRAZOLE (EC) 40 MG TAB PO SCH (05:49)
[2016-05-27] MEDS: Insulin NOVOLOG SS MILD Algorithm (SS with meals and bedtime) SC SCH ×5 (07:05→21:01)
[2016-05-27 07:30] VITALS: BP 128/58; RESP 18
[2016-05-27] MEDS: ASPIRIN 81 MG TAB PO SCH (08:34)
[2016-05-27] MEDS: DUTASTERIDE 0.5 MG CAP PO SCH (08:36)
[2016-05-27] MEDS: CLOPIDOGREL 75 MG TAB PO SCH (08:36)
[2016-05-27] MEDS: REPAGLINIDE 2 MG TAB PO SCH ×3 (08:36→17:37)
[2016-05-27] MEDS: DOCUSATE SODIUM 100 MG CAP PO SCH ×2 (08:36→20:47)
[2016-05-27] MEDS: NIFEdipine (XL) 30 MG TAB PO SCH (08:38)
[2016-05-27] MEDS: LINAGLIPTIN 5 MG TABLET PO SCH (08:40)
[2016-05-27 08:41] VITALS: BP 127/46; PULSE 72; PULSE 74; RESP 20
--- NOTE | 2016-05-27 09:14 | CONS ---
Date/Time of Note Date/Time of Note DATE: 05/27/16 TIME: 09:13 Consult Date/Type/Reason Admit Date/Time May 17, 2016 at 20:38 Subjective SUBJECTIVE: The patient is alert today. concerned re slow progress of recovery. No other acute events noted. No hemoptysis, hematemesis or hematochezia. Tolerates meds and therapies. POC reviewed with dr. lea. noted hyperglycemia. OBJECTIVE: HEENT: Head is normocephalic. NECK: Supple. HEART: Regular rate. LUNGS: Show diminished breath sounds at the base. ABDOMEN: Soft, nontender to palpation. No rebound or guarding. EXTREMITIES: Negative for clubbing, cyanosis. No edema. DERMATOLOGIC: No rashes. MUSCULOSKELETAL: No joint effusions. NEUROLOGIC: No change in exam. ASSESSMENT AND PLAN: 1. 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 The patient's neurologic status has been stable. Continue current treatment plan. Continue PT, OT. 2. Lethargy, weakness. Etiology is unclear, possibly related to blood pressure medications. The patient is improved clinically, more alert today. Laboratory data was reviewed. We will continue to monitor. 3. Status post right carotid endarterectomy. 4. Hypertension. Blood pressure stable, continue to monitor. 5. Diabetes, continue Accu-Cheks and sliding scale. diabetes consult ordered. prandin increased. will add tradjenta. 6. Asymptomatic pyuria. Continue to monitor. 7. Chronic kidney disease, stage III. Renal function stable. Continue supportive care, renally dose all meds. 8. Benign prostatic hypertrophy. Continue Flomax. 9. History of coronary artery disease, status post coronary artery bypass graft. 10. Diabetes. Continue Accu-Cheks, insulin sliding scale. increased prandin and added tradjenta 11. Status post leukocytosis. 12. Gastrointestinal and deep venous thrombosis prophylaxis. Continue proton pump inhibitor and sequential leg squeezers. Objective Vital Signs Date Time Temp Pulse Resp B/P Pulse Ox O2 Delivery O2 Flow Rate FiO2 05/27/16 08:41 98.4 74 20 127/46 97 Room Air 72 05/23/16 09:20 2.0 Intake and Output 05/26/16 05/26/16 05/27/16 15:00 23:00 07:00 Intake Total 600 ml 360 ml 300 ml Balance 600 ml 360 ml 300 ml Results/Medications Result Diagram: 05/23/16 1035 05/23/16 1035 Results 24 hrs Laboratory Tests Test 05/26/16 12:24 05/26/16 17:15 05/26/16 20:39 05/27/16 02:47 Bedside Glucose 243 H 345 H 260 H 105 Test 05/27/16 07:36 05/27/16 07:42 05/27/16 08:31 Bedside Glucose 63 L 60 L 163 Medications Current Medications Aspirin (Aspirin) 81 mg DAILY PO Last administered on 05/27/16 08:34; Admin Dose 81 MG; Start 05/18/16 at 09:00 Atorvastatin Calcium (Lipitor) 80 mg DAILY@21 PO Last administered on 05/26/16 21:27; Admin Dose 80 MG; Start 05/17/16 at 23:00 Clopidogrel Bisulfate (plaVIX) 75 mg DAILY PO Last administered on 05/27/16 08: 36; Admin Dose 75 MG; Start 05/18/16 at 09:00 Dutasteride (Avodart) 0.5 mg DAILY PO Last administered on 05/27/16 08:36; Admin Dose 0.5 MG; Start 05/18/16 at 09:00 Pantoprazole (Protonix Tab) 40 mg DAILY@06 PO Last administered on 05/27/16 05: 49; Admin Dose 40 MG; Start 05/18/16 at 06:00 Acetaminophen (Tylenol Tab) 650 mg Q4H PRN PO MILD PAIN OR FEVER; Start at 23:30 Clonidine (Catapres) 0.1 mg Q4H PRN PO ELEVATED BLOOD PRESSURE Last administered on 05/19/16at 20:28; Admin Dose 0.1 MG; Start 05/17/16 at 23:30 Ondansetron HCl (Zofran Inj) 4 mg Q6H PRN IV NAUSEA AND/OR VOMITING; Start at 23:30 Tamsulosin HCl (Flomax) 0.4 mg DAILY@21 PO Last administered on 05/26/16 21:27 ; Admin Dose 0.4 MG; Start 05/17/16 at 23:00 Diagnostic Test (Pha) (Accucheck) 1 ea 02 XX Last administered on 1/3/17at 02: 00; Admin Dose 1 EA; Start 05/18/16 at 02:00 Miscellaneous Information 1 ea NOTE XX ; Start 05/17/16 at 23:30 Glucose (Glutose) 15 gm Q15M PRN PO DECREASED GLUCOSE; Start 05/17/16 at 23:30 Glucose (Glutose) 22.5 gm Q15M PRN PO DECREASED GLUCOSE; Start 05/17/16 at 23: 30 Dextrose (D50w Syringe) 25 ml Q15M PRN IV DECREASED GLUCOSE; Start 05/17/16 at 23:30 Dextrose (D50w Syringe) 50 ml Q15M PRN IV DECREASED GLUCOSE; Start 05/17/16 at 23:30 Glucagon (Glucagen) 1 mg Q15M PRN IM DECREASED GLUCOSE; Start 05/17/16 at 23: 30 Glucose (Glutose) 15 gm Q15M PRN BUCCAL DECREASED GLUCOSE; Start 05/17/16 at 23:30 Acetaminophen/ Hydrocodone Bitart ([place] (5/325)) 1 tab Q6H PRN PO PAIN Last administered on 05/23/16 08:07; Admin Dose 1 TAB; Start 05/17/16 at 23:30 Docusate Sodium (Colace) 100 mg BID PO Last administered on 05/27/16 08:36; Admin Dose 100 MG; Start 05/18/16 at 09:00 Senna (Senokot) 1 tab HS PO Last administered on 05/26/16 21:27; Admin Dose 1 TAB; Start 05/18/16 at 21:00 Bisacodyl (Dulcolax Supp) 10 mg DAILY PRN [place] CONSTIPATION; Start 05/17/16 at 23:30 Magnesium Hydroxide (Milk Of Mag) 30 ml BID PRN PO CONSTIPATION; Start at 23:30 Lactulose (Enulose) 20 gm DAILY PRN PO CONSTIPATION Last administered on at 23:37; Admin Dose 20 GM; Start 05/17/16 at 23:30 Carvedilol (Coreg) 3.125 mg BID PO Last administered on 05/26/16 21:28; Admin Dose 3.125 MG; Start 05/23/16 at 21:00 Nifedipine (Procardia Xl) 30 mg DAILY PO Last administered on 05/26/16 08:56; Admin Dose 30 MG; Start 05/24/16 at 09:00 Insulin Glargine (Lantus) 16 unit HS SC Last administered on 05/26/16 21:39; Admin Dose 16 UNIT; Start 05/24/16 at 21:00 Linagliptin (Tradjenta) 5 mg DAILY PO Last administered on 05/27/16 08:40; Admin Dose 5 MG; Start 05/27/16 at 09:00 RICHELLE KNIGHT MD May 27, 2016 09:14
--- NOTE | 2016-05-27 12:49 | PN ---
Date/Time of Note Date/Time of Note DATE: 05/27/16 TIME: 12:40 Assessment/Plan VTE Prophylaxis VTE Prophylaxis Intervention: ambulation, other Lines/Catheters Urinary Cath still in place: No Assessment/Plan Assessment/Plan 1. 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 Continue PT/OT/ST. Gait advancing, now ambulating 250ft with SPC with SBA. Dynamic standing balance fair plus. Continue secondary stroke prevention per internal medicine. 2. S/p Right CEA. 3. DM. Blood sugars uncontrolled. Internal medicine adjusting regimen. Reinforce diabetic education. 4. HTN. Monitor BP, internal medicine managing. 5. CAD s/p CABG. Continue medical management. 6. CKD. Continue to monitor renal function. Avoid nephrotoxic agents. Subjective 24 Hr Interval Summary Free Text/Dictation Rehab progress note Subjective: Denies any acute complaints. ROS: Denies headache, no dizziness, no chills, no chest pain, no shortness of breath, no abdominal pain, no nausea or vomiting. Exam/Review of Systems Vital Signs Vitals Vital Signs Date Time Temp Pulse Resp B/P Pulse Ox O2 Delivery O2 Flow Rate FiO2 05/27/16 08:41 98.4 74 20 127/46 97 Room Air 72 05/23/16 09:20 2.0 Intake and Output 05/26/16 05/26/16 05/27/16 15:00 23:00 07:00 Intake Total 600 ml 360 ml 300 ml Balance 600 ml 360 ml 300 ml Exam General: Awake, alert, no acute distress CV: Regular rate, s1s2 Lungs: Clear to auscultation, no wheezing Abdomen soft, nontender, bowel sounds present Extremities without cyanosis, no swelling Neuro: Follows simple commands. Left hand intrinsics weak. Results Result Diagram: 05/23/16 1035 05/23/16 1035 Results 24 hrs Laboratory Tests Test 05/26/16 17:15 05/26/16 20:39 05/27/16 02:47 05/27/16 07:36 Bedside Glucose 345 H 260 H 105 63 L Test 05/27/16 07:42 05/27/16 08:31 05/27/16 11:45 Bedside Glucose 60 L 163 366 H Medications Medications Current Medications Aspirin (Aspirin) 81 mg DAILY PO Last administered on 05/27/16t 08:34; Admin Dose 81 MG; Start 05/18/16 at 09:00 Atorvastatin Calcium (Lipitor) 80 mg DAILY@21 PO Last administered on 05/26/16 21:27; Admin Dose 80 MG; Start 05/17/16 at 23:00 Clopidogrel Bisulfate (plaVIX) 75 mg DAILY PO Last administered on 05/27/16 08: 36; Admin Dose 75 MG; Start 05/18/16 at 09:00 Dutasteride (Avodart) 0.5 mg DAILY PO Last administered on 05/27/16 08:36; Admin Dose 0.5 MG; Start 05/18/16 at 09:00 Pantoprazole (Protonix Tab) 40 mg DAILY@06 PO Last administered on 05/27/16 05: 49; Admin Dose 40 MG; Start 05/18/16 at 06:00 Acetaminophen (Tylenol Tab) 650 mg Q4H PRN PO MILD PAIN OR FEVER; Start at 23:30 Clonidine (Catapres) 0.1 mg Q4H PRN PO ELEVATED BLOOD PRESSURE Last administered on 05/19/16at 20:28; Admin Dose 0.1 MG; Start 05/17/16 at 23:30 Ondansetron HCl (Zofran Inj) 4 mg Q6H PRN IV NAUSEA AND/OR VOMITING; Start at 23:30 Tamsulosin HCl (Flomax) 0.4 mg DAILY@21 PO Last administered on 05/26/16 21:27 ; Admin Dose 0.4 MG; Start 05/17/16 at 23:00 Diagnostic Test (Pha) (Accucheck) 1 ea 02 XX Last administered on 05/23/16 02: 00; Admin Dose 1 EA; Start 05/18/16 at 02:00 Miscellaneous Information 1 ea NOTE XX ; Start 05/17/16 at 23:30 Glucose (Glutose) 15 gm Q15M PRN PO DECREASED GLUCOSE; Start 05/17/16 at 23:30 Glucose (Glutose) 22.5 gm Q15M PRN PO DECREASED GLUCOSE; Start 05/17/16 at 23: 30 Dextrose (D50w Syringe) 25 ml Q15M PRN IV DECREASED GLUCOSE; Start 05/17/16 at 23:30 Dextrose (D50w Syringe) 50 ml Q15M PRN IV DECREASED GLUCOSE; Start 05/17/16 at 23:30 Glucagon (Glucagen) 1 mg Q15M PRN IM DECREASED GLUCOSE; Start 05/17/16 at 23: 30 Glucose (Glutose) 15 gm Q15M PRN BUCCAL DECREASED GLUCOSE; Start 05/17/16 at 23:30 Acetaminophen/ Hydrocodone Bitart ([place] (5/325)) 1 tab Q6H PRN PO PAIN Last administered on 05/23/16 08:07; Admin Dose 1 TAB; Start 05/17/16 at 23:30 Docusate Sodium (Colace) 100 mg BID PO Last administered on 05/27/16 08:36; Admin Dose 100 MG; Start 05/18/16 at 09:00 Senna (Senokot) 1 tab HS PO Last administered on 05/26/16 21:27; Admin Dose 1 TAB; Start 05/18/16 at 21:00 Bisacodyl (Dulcolax Supp) 10 mg DAILY PRN [place] CONSTIPATION; Start 05/17/16 at 23:30 Magnesium Hydroxide (Milk Of Mag) 30 ml BID PRN PO CONSTIPATION; Start at 23:30 Lactulose (Enulose) 20 gm DAILY PRN PO CONSTIPATION Last administered on at 23:37; Admin Dose 20 GM; Start 05/17/16 at 23:30 Carvedilol (Coreg) 3.125 mg BID PO Last administered on 05/26/16 21:28; Admin Dose 3.125 MG; Start 05/23/16 at 21:00 Nifedipine (Procardia Xl) 30 mg DAILY PO Last administered on 05/26/16 08:56; Admin Dose 30 MG; Start 05/24/16 at 09:00 Insulin Glargine (Lantus) 16 unit HS SC Last administered on 05/26/16 21:39; Admin Dose 16 UNIT; Start 05/24/16 at 21:00 Linagliptin (Tradjenta) 5 mg DAILY PO Last administered on 05/27/16 08:40; Admin Dose 5 MG; Start 05/27/16 at 09:00 ALDA TOMPKINS May 27, 2016 12:49
[2016-05-27 20:00] VITALS: BP 148/89; RESP 18
[2016-05-27] MEDS: ATORVASTATIN 80 MG TAB PO SCH (20:46)
[2016-05-27] MEDS: SENNA TAB PO SCH (20:47)
[2016-05-27] MEDS: TAMSULOSIN (SR) 0.4 MG CAP PO SCH (20:47)
[2016-05-27] MEDS: INSULIN GLARGINE [LANtus] 3 ML PEN SC SCH (20:59)
[2016-05-28] MEDS: ACCUCHECK AT 2AM (Patients on SS coverage) XX SCH (02:00)
[2016-05-28] MEDS: PANTOPRAZOLE (EC) 40 MG TAB PO SCH (06:32)
[2016-05-28] MEDS: Insulin NOVOLOG SS MILD Algorithm (SS with meals and bedtime) SC SCH ×4 (07:05→21:00)
[2016-05-28 07:30] VITALS: BP 141/63; RESP 18
[2016-05-28 08:00] VITALS: BP 141/63; PULSE 61; RESP 18
[2016-05-28 08:36] VITALS: BP 177/88
[2016-05-28 09:30] VITALS: BP 135/78; PULSE 78
[2016-05-28] MEDS: ASPIRIN 81 MG TAB PO SCH (09:30)
[2016-05-28] MEDS: DOCUSATE SODIUM 100 MG CAP PO SCH ×2 (09:30→21:30)
[2016-05-28] MEDS: LINAGLIPTIN 5 MG TABLET PO SCH (09:30)
[2016-05-28] MEDS: DUTASTERIDE 0.5 MG CAP PO SCH (09:30)
[2016-05-28] MEDS: NIFEdipine (XL) 30 MG TAB PO SCH (09:38)
[2016-05-28] MEDS: REPAGLINIDE 2 MG TAB PO SCH ×3 (09:38→18:06)
--- NOTE | 2016-05-28 10:22 | CONS ---
Date/Time of Note Date/Time of Note DATE: 05/28/16 TIME: 10:21 Consult Date/Type/Reason Admit Date/Time May 17, 2016 at 20:38 Subjective SUBJECTIVE: The patient is alert today. concerned re slow progress of recovery. No other acute events noted. No hemoptysis, hematemesis or hematochezia. Tolerates meds and therapies. POC reviewed with dr. lea. noted hyperglycemia. glucoses continue to be labile. OBJECTIVE: HEENT: Head is normocephalic. NECK: Supple. HEART: Regular rate. LUNGS: Show diminished breath sounds at the base. ABDOMEN: Soft, nontender to palpation. No rebound or guarding. EXTREMITIES: Negative for clubbing, cyanosis. No edema. DERMATOLOGIC: No rashes. MUSCULOSKELETAL: No joint effusions. NEUROLOGIC: No change in exam. ASSESSMENT AND PLAN: 1. 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 The patient's neurologic status has been stable. Continue current treatment plan. Continue PT, OT. 2. Lethargy, weakness. Etiology is unclear, possibly related to blood pressure medications. The patient is improved clinically, more alert today. Laboratory data was reviewed. We will continue to monitor. 3. Status post right carotid endarterectomy. 4. Hypertension. Blood pressure stable, continue to monitor. 5. Diabetes, continue Accu-Cheks and sliding scale. diabetes consult ordered. prandin increased. sp add tradjenta. monitor for next couple of days. 6. Asymptomatic pyuria. Continue to monitor. 7. Chronic kidney disease, stage III. Renal function stable. Continue supportive care, renally dose all meds. 8. Benign prostatic hypertrophy. Continue Flomax. 9. History of coronary artery disease, status post coronary artery bypass graft. 10. Diabetes. Continue Accu-Cheks, insulin sliding scale. increased prandin and added tradjenta 11. Status post leukocytosis. 12. Gastrointestinal and deep venous thrombosis prophylaxis. Continue proton pump inhibitor and sequential leg squeezers. Objective Vital Signs Date Time Temp Pulse Resp B/P Pulse Ox O2 Delivery O2 Flow Rate FiO2 05/28/16 08:00 97.9 61 18 141/63 98 Room Air Intake and Output 05/27/16 05/27/16 05/28/16 15:00 23:00 07:00 Intake Total 480 ml 980 ml 540 ml Output Total 400 ml 750 ml 1250 ml Balance 80 ml 230 ml -710 ml Results/Medications Results 24 hrs Laboratory Tests Test 05/27/16 11:45 05/27/16 16:46 05/27/16 20:44 05/28/16 02:16 Bedside Glucose 366 H 315 H 198 125 Test 05/28/16 07:57 Bedside Glucose 95 Medications Current Medications Aspirin (Aspirin) 81 mg DAILY PO Last administered on 05/28/16 09:30; Admin Dose 81 MG; Start 05/18/16 at 09:00 Atorvastatin Calcium (Lipitor) 80 mg DAILY@21 PO Last administered on 05/27/16 20:46; Admin Dose 80 MG; Start 05/17/16 at 23:00 Clopidogrel Bisulfate (plaVIX) 75 mg DAILY PO Last administered on 05/27/16 08: 36; Admin Dose 75 MG; Start 05/18/16 at 09:00 Dutasteride (Avodart) 0.5 mg DAILY PO Last administered on 05/28/16 09:30; Admin Dose 0.5 MG; Start 05/18/16 at 09:00 Pantoprazole (Protonix Tab) 40 mg DAILY@06 PO Last administered on 05/28/16 06: 32; Admin Dose 40 MG; Start 05/18/16 at 06:00 Acetaminophen (Tylenol Tab) 650 mg Q4H PRN PO MILD PAIN OR FEVER; Start at 23:30 Clonidine (Catapres) 0.1 mg Q4H PRN PO ELEVATED BLOOD PRESSURE Last administered on 05/19/16at 20:28; Admin Dose 0.1 MG; Start 05/17/16 at 23:30 Ondansetron HCl (Zofran Inj) 4 mg Q6H PRN IV NAUSEA AND/OR VOMITING; Start at 23:30 Tamsulosin HCl (Flomax) 0.4 mg DAILY@21 PO Last administered on 05/27/16 20:47 ; Admin Dose 0.4 MG; Start 05/17/16 at 23:00 Diagnostic Test (Pha) (Accucheck) 1 ea 02 XX Last administered on 05/23/16 02: 00; Admin Dose 1 EA; Start 05/18/16 at 02:00 Miscellaneous Information 1 ea NOTE XX ; Start 05/17/16 at 23:30 Glucose (Glutose) 15 gm Q15M PRN PO DECREASED GLUCOSE; Start 05/17/16 at 23:30 Glucose (Glutose) 22.5 gm Q15M PRN PO DECREASED GLUCOSE; Start 05/17/16 at 23: 30 Dextrose (D50w Syringe) 25 ml Q15M PRN IV DECREASED GLUCOSE; Start 05/17/16 at 23:30 Dextrose (D50w Syringe) 50 ml Q15M PRN IV DECREASED GLUCOSE; Start 05/17/16 at 23:30 Glucagon (Glucagen) 1 mg Q15M PRN IM DECREASED GLUCOSE; Start 05/17/16 at 23: 30 Glucose (Glutose) 15 gm Q15M PRN BUCCAL DECREASED GLUCOSE; Start 05/17/16 at 23:30 Acetaminophen/ Hydrocodone Bitart ([place] (5/325)) 1 tab Q6H PRN PO PAIN Last administered on 05/23/16 08:07; Admin Dose 1 TAB; Start 05/17/16 at 23:30 Docusate Sodium (Colace) 100 mg BID PO Last administered on 05/28/16 09:30; Admin Dose 100 MG; Start 05/18/16 at 09:00 Senna (Senokot) 1 tab HS PO Last administered on 05/27/16 20:47; Admin Dose 1 TAB; Start 05/18/16 at 21:00 Bisacodyl (Dulcolax Supp) 10 mg DAILY PRN [place] CONSTIPATION; Start 05/17/16 at 23:30 Magnesium Hydroxide (Milk Of Mag) 30 ml BID PRN PO CONSTIPATION; Start at 23:30 Lactulose (Enulose) 20 gm DAILY PRN PO CONSTIPATION Last administered on at 23:37; Admin Dose 20 GM; Start 05/17/16 at 23:30 Carvedilol (Coreg) 3.125 mg BID PO Last administered on 05/27/16 20:50; Admin Dose 3.125 MG; Start 05/23/16 at 21:00 Nifedipine (Procardia Xl) 30 mg DAILY PO Last administered on 05/28/16 09:38; Admin Dose 30 MG; Start 05/24/16 at 09:00 Insulin Glargine (Lantus) 16 unit HS SC Last administered on 05/27/16 20:59; Admin Dose 16 UNIT; Start 05/24/16 at 21:00 Linagliptin (Tradjenta) 5 mg DAILY PO Last administered on 05/28/16 09:30; Admin Dose 5 MG; Start 05/27/16 at 09:00 RICHELLE KNIGHT MD May 28, 2016 10:22
[2016-05-28] MEDS: CLOPIDOGREL 75 MG TAB PO SCH (10:48)
--- NOTE | 2016-05-28 12:13 | PN ---
Date/Time of Note Date/Time of Note DATE: 05/28/16 TIME: 12:09 Assessment/Plan VTE Prophylaxis VTE Prophylaxis Intervention: ambulation, SCD's, other Lines/Catheters Urinary Cath still in place: No Assessment/Plan Assessment/Plan 1. 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 Continue PT/OT/ST. Continue secondary stroke prevention per internal medicine. Supervision for upper body dressing and grooming, CGA for lower body dressing. 2. S/p Right carotid endarterectomy.. Continue medical management. 3. DM. Internal medicine adjusting regimen, continue to monitor blood sugars. 4. HTN. Continue to monitor BP, internal medicine managing. 5. CAD s/p CABG. Continue medical management. 6. CKD. Continue to monitor renal function. Internal medicine following. Subjective 24 Hr Interval Summary Free Text/Dictation Rehab progress note Subjective: No acute overnight events per nursing. Patient denies acute complaints. ROS: Denies headache, no dizziness, no chills, no chest pain, no shortness of breath, no abdominal pain, no nausea. Exam/Review of Systems Vital Signs Vitals Vital Signs Date Time Temp Pulse Resp B/P Pulse Ox O2 Delivery O2 Flow Rate FiO2 05/28/16 08:00 97.9 61 18 141/63 98 Room Air Intake and Output 05/27/16 05/27/16 05/28/16 14:59 22:59 06:59 Intake Total 480 ml 980 ml 540 ml Output Total 400 ml 750 ml 1250 ml Balance 80 ml 230 ml -710 ml Exam General: Awake, alert, no acute distress CV: Regular rate, s1s2 Lungs: Decreased bibasilar breath sounds, no wheezing Abdomen soft, nontender, bowel sounds present Extremities without cyanosis, no distal edema Neuro: No new focal changes. Follows simple commands. Results Results 24 hrs Laboratory Tests Test 05/27/16 16:46 05/27/16 20:44 05/28/16 02:16 05/28/16 07:57 Bedside Glucose 315 H 198 125 95 Medications Medications Current Medications Aspirin (Aspirin) 81 mg DAILY PO Last administered on 05/28/16 09:30; Admin Dose 81 MG; Start 05/18/16 at 09:00 Atorvastatin Calcium (Lipitor) 80 mg DAILY@21 PO Last administered on 05/27/16 20:46; Admin Dose 80 MG; Start 05/17/16 at 23:00 Clopidogrel Bisulfate (plaVIX) 75 mg DAILY PO Last administered on 05/28/16 10: 48; Admin Dose 75 MG; Start 05/18/16 at 09:00 Dutasteride (Avodart) 0.5 mg DAILY PO Last administered on 05/28/16 09:30; Admin Dose 0.5 MG; Start 05/18/16 at 09:00 Pantoprazole (Protonix Tab) 40 mg DAILY@06 PO Last administered on 05/28/16 06: 32; Admin Dose 40 MG; Start 05/18/16 at 06:00 Acetaminophen (Tylenol Tab) 650 mg Q4H PRN PO MILD PAIN OR FEVER; Start at 23:30 Clonidine (Catapres) 0.1 mg Q4H PRN PO ELEVATED BLOOD PRESSURE Last administered on 05/19/16at 20:28; Admin Dose 0.1 MG; Start 05/17/16 at 23:30 Ondansetron HCl (Zofran Inj) 4 mg Q6H PRN IV NAUSEA AND/OR VOMITING; Start at 23:30 Tamsulosin HCl (Flomax) 0.4 mg DAILY@21 PO Last administered on 05/27/16 20:47 ; Admin Dose 0.4 MG; Start 05/17/16 at 23:00 Diagnostic Test (Pha) (Accucheck) 1 ea 02 XX Last administered on 05/23/16 02: 00; Admin Dose 1 EA; Start 05/18/16 at 02:00 Miscellaneous Information 1 ea NOTE XX ; Start 05/17/16 at 23:30 Glucose (Glutose) 15 gm Q15M PRN PO DECREASED GLUCOSE; Start 05/17/16 at 23:30 Glucose (Glutose) 22.5 gm Q15M PRN PO DECREASED GLUCOSE; Start 05/17/16 at 23: 30 Dextrose (D50w Syringe) 25 ml Q15M PRN IV DECREASED GLUCOSE; Start 05/17/16 at 23:30 Dextrose (D50w Syringe) 50 ml Q15M PRN IV DECREASED GLUCOSE; Start 05/17/16 at 23:30 Glucagon (Glucagen) 1 mg Q15M PRN IM DECREASED GLUCOSE; Start 05/17/16 at 23: 30 Glucose (Glutose) 15 gm Q15M PRN BUCCAL DECREASED GLUCOSE; Start 05/17/16 at 23:30 Acetaminophen/ Hydrocodone Bitart ([place] (5/325)) 1 tab Q6H PRN PO PAIN Last administered on 05/23/16 08:07; Admin Dose 1 TAB; Start 05/17/16 at 23:30 Docusate Sodium (Colace) 100 mg BID PO Last administered on 05/28/16 09:30; Admin Dose 100 MG; Start 05/18/16 at 09:00 Senna (Senokot) 1 tab HS PO Last administered on 05/27/16 20:47; Admin Dose 1 TAB; Start 05/18/16 at 21:00 Bisacodyl (Dulcolax Supp) 10 mg DAILY PRN [place] CONSTIPATION; Start 05/17/16 at 23:30 Magnesium Hydroxide (Milk Of Mag) 30 ml BID PRN PO CONSTIPATION; Start at 23:30 Lactulose (Enulose) 20 gm DAILY PRN PO CONSTIPATION Last administered on at 23:37; Admin Dose 20 GM; Start 05/17/16 at 23:30 Carvedilol (Coreg) 3.125 mg BID PO Last administered on 05/28/16 08:36; Admin Dose 3.125 MG; Start 05/23/16 at 21:00 Nifedipine (Procardia Xl) 30 mg DAILY PO Last administered on 05/28/16 09:38; Admin Dose 30 MG; Start 05/24/16 at 09:00 Insulin Glargine (Lantus) 16 unit HS SC Last administered on 05/27/16 20:59; Admin Dose 16 UNIT; Start 05/24/16 at 21:00 Linagliptin (Tradjenta) 5 mg DAILY PO Last administered on 05/28/16 09:30; Admin Dose 5 MG; Start 05/27/16 at 09:00 ALDA TOMPKINS May 28, 2016 12:13
[2016-05-28 20:24] VITALS: BP 156/70; RESP 19
[2016-05-28] MEDS: SENNA TAB PO SCH (21:30)
[2016-05-28] MEDS: TAMSULOSIN (SR) 0.4 MG CAP PO SCH (21:30)
[2016-05-28] MEDS: ATORVASTATIN 80 MG TAB PO SCH (21:30)
[2016-05-28] MEDS: INSULIN GLARGINE [LANtus] 3 ML PEN SC SCH (21:35)
[2016-05-29] MEDS: ACCUCHECK AT 2AM (Patients on SS coverage) XX SCH (02:00)
[2016-05-29] MEDS: PANTOPRAZOLE (EC) 40 MG TAB PO SCH (06:45)
[2016-05-29 08:00] VITALS: BP 138/79; PULSE 78; PULSE 88; RESP 18
[2016-05-29] MEDS: LINAGLIPTIN 5 MG TABLET PO SCH (08:20)
[2016-05-29] MEDS: REPAGLINIDE 2 MG TAB PO SCH ×3 (08:20→17:50)
[2016-05-29] MEDS: DUTASTERIDE 0.5 MG CAP PO SCH (08:20)
[2016-05-29] MEDS: CLOPIDOGREL 75 MG TAB PO SCH (08:20)
[2016-05-29] MEDS: ASPIRIN 81 MG TAB PO SCH (08:20)
[2016-05-29] MEDS: Insulin NOVOLOG SS MILD Algorithm (SS with meals and bedtime) SC SCH ×4 (08:26→20:53)
[2016-05-29] MEDS: NIFEdipine (XL) 30 MG TAB PO SCH (09:03)
[2016-05-29] MEDS: DOCUSATE SODIUM 100 MG CAP PO SCH ×2 (09:04→20:45)
--- NOTE | 2016-05-29 11:32 | PN ---
DATE: 05/29/2016 SUBJECTIVE: The patient is stable, no acute events overnight. No fevers, chills, nausea, vomiting. OBJECTIVE: VITAL SIGNS: Blood pressure is 156/70, respiration 19, pulse 87, temperature 98.7. HEENT: Head is normocephalic. NECK: Supple. HEART: Regular rate. LUNGS: Show diminished breath sounds at the bases. ABDOMEN: Soft, nontender to palpation. No rebound or guarding. EXTREMITIES: Negative for clubbing, cyanosis. No edema. DERMATOLOGIC: No rashes. MUSCULOSKELETAL: No joint effusions. NEUROLOGIC: No change in exam. MEDICATIONS: The patient's medications have been reviewed. LABORATORY DATA: Have been reviewed. No new labs. ASSESSMENT AND PLAN: 1. Acute right-sided cerebrovascular accident of the middle cerebral artery distribution with left hand weakness. The patient's neurological status is stable. Continue current treatment plan. 2. Status post carotid endarterectomy. Continue current medical management. 3. Hypertension. Blood pressures are fluctuating. Continue to monitor. Adjust medications as nee ded. 4. Diabetes. Continue Accu-Cheks, insulin sliding scale. 5. Chronic kidney disease, stage III. Renal function has been stable. Continue supportive care, r enally dose all medications, avoid nephrotoxins. 6. Benign prostatic hypertrophy. Continue Flomax. 7. Coronary artery disease, status post coronary artery bypass graft. 8. Diabetes. Continue current insulin regimen. 9. Status post leukocytosis. 10. Gastrointestinal and deep venous thrombosis prophylaxis. Continue proton pump inhibitor and se quential leg squeezers. Dictated By: RAYMOND BORREGO/DAMARI Conf#: [id number] DID#: [id number]
--- NOTE | 2016-05-29 13:10 | CONS ---
Date/Time of Note Date/Time of Note DATE: 05/29/16 TIME: 13:09 Consult Date/Type/Reason Admit Date/Time May 17, 2016 at 20:38 Subjective Overall improved Objective Vital Signs Date Time Temp Pulse Resp B/P Pulse Ox O2 Delivery O2 Flow Rate FiO2 05/29/16 08:00 98.5 78 18 138/79 98 Room Air 88 Intake and Output 05/28/16 05/28/16 05/29/16 15:00 23:00 07:00 Intake Total 1140 ml 240 ml Output Total 270 ml Balance 1140 ml -30 ml INTERDISCIPLINARY TEAM CONFERENCE BOWEL- Cont BLADDER-Cont SKIN- intact OT- DRESSING-sba BATHING-sba TOILETING-sba PT- BED MOBILITY-sba TRANSFERS-sba AMBULATION-sba 150 with SPC SPEECH- COGNITION-s/I A/P- Interdisciplinary team conference held today. Please see interdisciplinary sheet. Working toward d.c. on 05/30 with post discharge follow up of physical therapy, occupational therapy. Results/Medications Results 24 hrs Laboratory Tests Test 05/28/16 17:13 05/28/16 20:02 05/29/16 07:47 05/29/16 12:15 Bedside Glucose 269 H 202 153 211 Medications Current Medications Aspirin (Aspirin) 81 mg DAILY PO Last administered on 05/29/16 08:20; Admin Dose 81 MG; Start 05/18/16 at 09:00 Atorvastatin Calcium (Lipitor) 80 mg DAILY@21 PO Last administered on 05/28/16 21:30; Admin Dose 80 MG; Start 05/17/16 at 23:00 Clopidogrel Bisulfate (plaVIX) 75 mg DAILY PO Last administered on 05/29/16 08: 20; Admin Dose 75 MG; Start 05/18/16 at 09:00 Dutasteride (Avodart) 0.5 mg DAILY PO Last administered on 05/29/16 08:20; Admin Dose 0.5 MG; Start 05/18/16 at 09:00 Pantoprazole (Protonix Tab) 40 mg DAILY@06 PO Last administered on 05/29/16 06: 45; Admin Dose 40 MG; Start 05/18/16 at 06:00 Acetaminophen (Tylenol Tab) 650 mg Q4H PRN PO MILD PAIN OR FEVER; Start at 23:30 Clonidine (Catapres) 0.1 mg Q4H PRN PO ELEVATED BLOOD PRESSURE Last administered on 05/19/16at 20:28; Admin Dose 0.1 MG; Start 05/17/16 at 23:30 Ondansetron HCl (Zofran Inj) 4 mg Q6H PRN IV NAUSEA AND/OR VOMITING; Start at 23:30 Tamsulosin HCl (Flomax) 0.4 mg DAILY@21 PO Last administered on 05/28/16 21:30 ; Admin Dose 0.4 MG; Start 05/17/16 at 23:00 Diagnostic Test (Pha) (Accucheck) 1 ea 02 XX Last administered on 05/23/16 02: 00; Admin Dose 1 EA; Start 05/18/16 at 02:00 Miscellaneous Information 1 ea NOTE XX ; Start 05/17/16 at 23:30 Glucose (Glutose) 15 gm Q15M PRN PO DECREASED GLUCOSE; Start 05/17/16 at 23:30 Glucose (Glutose) 22.5 gm Q15M PRN PO DECREASED GLUCOSE; Start 05/17/16 at 23: 30 Dextrose (D50w Syringe) 25 ml Q15M PRN IV DECREASED GLUCOSE; Start 05/17/16 at 23:30 Dextrose (D50w Syringe) 50 ml Q15M PRN IV DECREASED GLUCOSE; Start 05/17/16 at 23:30 Glucagon (Glucagen) 1 mg Q15M PRN IM DECREASED GLUCOSE; Start 05/17/16 at 23: 30 Glucose (Glutose) 15 gm Q15M PRN BUCCAL DECREASED GLUCOSE; Start 05/17/16 at 23:30 Acetaminophen/ Hydrocodone Bitart ([place] (5/325)) 1 tab Q6H PRN PO PAIN Last administered on 05/23/16 08:07; Admin Dose 1 TAB; Start 05/17/16 at 23:30 Docusate Sodium (Colace) 100 mg BID PO Last administered on 05/29/16 09:04; Admin Dose 100 MG; Start 05/18/16 at 09:00 Senna (Senokot) 1 tab HS PO Last administered on 05/28/16 21:30; Admin Dose 1 TAB; Start 05/18/16 at 21:00 Bisacodyl (Dulcolax Supp) 10 mg DAILY PRN [place] CONSTIPATION; Start 05/17/16 at 23:30 Magnesium Hydroxide (Milk Of Mag) 30 ml BID PRN PO CONSTIPATION; Start at 23:30 Lactulose (Enulose) 20 gm DAILY PRN PO CONSTIPATION Last administered on at 23:37; Admin Dose 20 GM; Start 05/17/16 at 23:30 Carvedilol (Coreg) 3.125 mg BID PO Last administered on 05/29/16 09:03; Admin Dose 3.125 MG; Start 05/23/16 at 21:00 Nifedipine (Procardia Xl) 30 mg DAILY PO Last administered on 05/29/16 09:03; Admin Dose 30 MG; Start 05/24/16 at 09:00 Insulin Glargine (Lantus) 16 unit HS SC Last administered on 05/28/16 21:35; Admin Dose 16 UNIT; Start 05/24/16 at 21:00 Linagliptin (Tradjenta) 5 mg DAILY PO Last administered on 05/29/16 08:20; Admin Dose 5 MG; Start 05/27/16 at 09:00 FAHAD MELTON MD May 29, 2016 13:09
[2016-05-29 20:24] VITALS: BP 134/61; RESP 18
[2016-05-29] MEDS: SENNA TAB PO SCH (20:45)
[2016-05-29] MEDS: TAMSULOSIN (SR) 0.4 MG CAP PO SCH (20:45)
[2016-05-29] MEDS: ATORVASTATIN 80 MG TAB PO SCH (20:45)
[2016-05-29] MEDS: INSULIN GLARGINE [LANtus] 3 ML PEN SC SCH (20:51)
[2016-05-30] MEDS: ACCUCHECK AT 2AM (Patients on SS coverage) XX SCH (02:41)
[2016-05-30] MEDS: PANTOPRAZOLE (EC) 40 MG TAB PO SCH (06:39)
[2016-05-30] MEDS: Insulin NOVOLOG SS MILD Algorithm (SS with meals and bedtime) SC SCH ×3 (07:05→17:27)
[2016-05-30 07:39] VITALS: BP 148/64; RESP 18
[2016-05-30 08:00] VITALS: BP 148/64; RESP 18
[2016-05-30] MEDS: REPAGLINIDE 2 MG TAB PO SCH ×3 (08:53→17:25)
[2016-05-30] MEDS: DUTASTERIDE 0.5 MG CAP PO SCH (08:54)
[2016-05-30] MEDS: DOCUSATE SODIUM 100 MG CAP PO SCH (08:54)
[2016-05-30] MEDS: ASPIRIN 81 MG TAB PO SCH (08:54)
[2016-05-30] MEDS: CLOPIDOGREL 75 MG TAB PO SCH (08:55)
[2016-05-30] MEDS: LINAGLIPTIN 5 MG TABLET PO SCH (08:55)
[2016-05-30] MEDS: NIFEdipine (XL) 30 MG TAB PO SCH (08:55)
--- NOTE | 2016-05-30 11:28 | PN ---
DATE: 05/30/2016 SUBJECTIVE: The patient is stable, no acute events overnight. No fevers, chills, nausea, vomiting. No shortness of breath. OBJECTIVE: VITAL SIGNS: Blood pressure is 140/64, respiration 18, pulse 77, temperature 97.9. HEENT: Head is normocephalic. NECK: Supple. HEART: Regular rate. LUNGS: Show diminished breath sounds at base. ABDOMEN: Soft, nontender to palpation, no rebound or guarding. EXTREMITIES: Negative for clubbing, cyanosis. No edema. DERMATOLOGIC: No rashes. MUSCULOSKELETAL: No joint effusions. NEUROLOGIC: No change in exam. MEDICATIONS: Have been reviewed. LABORATORY DATA: Has been reviewed. No new labs. ASSESSMENT AND PLAN: 1. 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 The patient is neurologically stable. 2. Status post carotid endarterectomy. Continue medical management. 3. Hypertension. Blood pressure is stable. Continue to monitor. 4. Diabetes, continue current insulin regimen. 5. Chronic kidney disease stage III. Renal function is stable. Continue current treatment plan. 6. Benign prostatic hypertrophy. Continue Flomax. 7. Coronary artery disease, status post coronary artery bypass graft. 8. Diabetes. 9. Status post leukocytosis. 10. Gastrointestinal and deep venous thrombosis prophylaxis. Continue proton pump inhibitor and se quential leg squeezers. Dictated By: RAYMOND BORREGO/DAMARI Conf#: [id number] DID#: [id number]
== END 2016-05-30 17:45 | disposition home health service (06) | DRG 57 ==
LOC: VRC 20:38
PROVIDERS: ADMIT Physical Medicine & Rehabilitation; ATTEND Internal Medicine Nephrology
DX: I69.354 Hemiplegia and hemiparesis following cerebral infarction affecting left non-dominant side (principal); E11.65 Type 2 diabetes mellitus with hyperglycemia; N39.0 Urinary tract infection, site not specified; N18.3 Chronic kidney disease, stage 3 (moderate); R13.10 Dysphagia, unspecified; I12.9 Hypertensive chronic kidney disease with stage 1 through stage 4 chronic kidney disease, or unspecified chronic kidney disease; N40.0 Benign prostatic hyperplasia without lower urinary tract symptoms; Z95.1 Presence of aortocoronary bypass graft; Z72.0 Tobacco use; F06.31 Mood disorder due to known physiological condition with depressive features
CPT/HCPCS: 80048; 80053; 81001; 81003; 82962; 83036; 83735; 84100; 85025; 87081; 87086; 92507; 92523; 92526; 92610; 94664; 95852; 97001; 97003; 97110; 97112; 97116; 97150; 97530; 97535; 97542; J1815